=== PATIENT | male | born 1970 | race Caucasian/White ===

== ENCOUNTER → 2016-12-28 | Outpatient (CLI) | payer OTHER ==
--- NOTE | 2016-12-28 18:44 | CT ---
EXAMINATION TYPE: CT abdomen w con DATE OF EXAM: 12/28/2016 COMPARISON: NONE HISTORY: Liver lesion found on US. CT DLP: 330.9 mGycm Automated exposure control for dose reduction was used. TECHNIQUE: Helical acquisition of images was performed from the lung bases through the top of iliac crest to include entire abdomen. CONTRAST: Performed with Oral Contrast and with IV Contrast, patient injected with 100 mL of Omnipaque 300. FINDINGS: Lung bases are clear. There is no pleural effusion. Gallbladder is contracted. Spleen and pancreas ap pear normal. There is probably a 1 cm cyst adjacent to the gallbladder within the anterior right lobe of the liver. Bile ducts are not dilated. There is no adrenal mass. Kidneys show satisfactory contrast opacification. There is no hydronephrosi s. Appendix appears normal. I see no intestinal wall thickening. There are no dilated loops. There is no retroperitoneal adenopathy. I see no bony destructive process. IMPRESSION: THERE IS PROBABLY A SMALL CYST IN THE LIVER ADJACENT TO THE GALLBLADDER. OTHERWISE NEGATIVE CT SCAN O F THE ABDOMEN. THE PREVIOUS ULTRASOUND EXAMS NOT AVAILABLE.
== END | disposition home or self-care (01) ==
LOC: RADCTMAIN 17:23
PROVIDERS: ATTEND Internal Medicine Gastroenterology
DX: K76.9 Liver disease, unspecified (principal)
CPT/HCPCS: 74160; Q9967

== ENCOUNTER → 2017-06-30 | Outpatient (CLI) | payer OTHER ==
[2017-06-30 08:46] LABS: Basophils # (A) 0.1 k/uL (0-0.2); Basophils % (A) 1 %; Eosinophils # (A) 0.4 k/uL (0-0.7); Eosinophils % (A) 4 %; HCT 50.8 % (39.0-53.0); HGB 16.5 gm/dL (13.0-17.5); Lymphocytes # (A) 1.8 k/uL (1.0-4.8); Lymphocytes % (A) 21 %; MCH 31.8 pg (25.0-35.0); MCHC 32.4 g/dL (31.0-37.0); Monocytes # (A) 0.4 k/uL (0-1.0); Monocytes % (A) 5 %; Neutrophils # (A) 5.8 k/uL (1.3-7.7); Neutrophils % (A) 67 %; Platelet Count 327 k/uL (150-450); RBC 5.18 m/uL (4.30-5.90); RDW 13.1 % (11.5-15.5); WBC 8.6 k/uL (3.8-10.6)
[2017-06-30 08:52] LABS: INR 1.1 (<1.2); Prothrombin Time 10.5 sec (9.0-12.0)
[2017-06-30 09:12] LABS: Albumin 4.4 g/dL (3.5-5.0); Bilirubin, Delta 0.4 mg/dL (0.0-0.2); Bilirubin,Unconjugated 0.1 mg/dL (0.0-1.1); Total Bilirubin 0.5 mg/dL (0.2-1.3); Total Protein 7.2 g/dL (6.3-8.2)
--- NOTE | 2017-06-30 09:34 | US ---
EXAMINATION TYPE: US liver DATE OF EXAM: 06/30/2017 COMPARISON: CT 02/28/2016 CLINICAL HISTORY: K76.9 Liver disease, unspecified. Cystic area visualized on CT EXAM MEASUREMENTS: Liver Length: 15.8 cm Gallbladder Wall: 0.3 cm CBD: 0.6 cm Right Kidney: 10.5 x 3.8 x 5.7 cm Pancreas: Tail obscured by overlying bowel gas. Duct visualized measuring 0.2 cm, within normal limi ts although slightly prominent. Liver: Cystic area visualized adjacent to the gallbladder measuring 1.1 x 0.7 x 0.8 cm Gallbladder: Contracted with circumferential gallbladder wall thickening. Evidence for sonographic Barraza's sign: No CBD: Measuring upper limits of normal Right Kidney: No hydronephrosis or masses seen IMPRESSION: 1. Sonographic hepatic cyst appears simple and measures 1.1 cm correlating with the CT finding. 2. Contracted gallbladder demonstrates wall thickening, likely due to contraction although the common bile duct also measures upper limits of normal as does the pancreatic duct. Therefore further evalua tion with MRCP could be considered.
[2017-07-01 15:20] LABS: Hepatits C Virus RNA DETECTED (Not detected); LOG HCV IU/mL 5.99 (<1.08)
== END | disposition home or self-care (01) ==
LOC: RADUSWWP 08:02
PROVIDERS: ATTEND Internal Medicine Gastroenterology
DX: K82.8 Other specified diseases of gallbladder (principal); K76.9 Liver disease, unspecified; B18.2 Chronic viral hepatitis C
CPT/HCPCS: 36415; 76705; 80076; 82105; 85025; 85610; 87522

== ENCOUNTER 2017-12-13 20:41 | Emergency (ER) | payer OTHER ==
[2017-12-13] MEDS ORDERED: KETOROLAC 30 MG/ML 1 ML VIAL IVP STA (20:54)
[2017-12-13] MEDS ORDERED: IPRATROPIUM-ALBUTEROL 3 ML NEB INHALATION STA (20:54)
[2017-12-13 21:18] LABS: Basophils # (A) 0.1 k/uL (0-0.2); Basophils % (A) 1 %; Eosinophils # (A) 0.2 k/uL (0-0.7); Eosinophils % (A) 2 %; HCT 50.1 % (39.0-53.0); HGB 16.6 gm/dL (13.0-17.5); Lymphocytes % (A) 22 %; MCH 32.5 pg (25.0-35.0); MCHC 33.2 g/dL (31.0-37.0); Mean Platelet Volume 8.5; Monocytes # (A) 0.4 k/uL (0-1.0); Monocytes % (A) 4 %; Neutrophils # (A) 6.2 k/uL (1.3-7.7); Neutrophils % (A) 69 %; Platelet Count 295 k/uL (150-450); RBC 5.11 m/uL (4.30-5.90); RDW 13.2 % (11.5-15.5)
[2017-12-13 21:26] LABS: ALT 64 U/L (21-72); AST 51 U/L (17-59); Albumin 4.1 g/dL (3.5-5.0); Alkaline Phosphatase 87 U/L (38-126); Amylase 50 U/L (30-110); Anion Gap 9 mmol/L; Blood Urea Nitrogen 12 mg/dL (9-20); Calcium 9.5 mg/dL (8.4-10.2); Carbon Dioxide 24 mmol/L (22-30); Chloride 107 mmol/L (98-107); Glucose 206 mg/dL (74-99); Lipase 161 U/L (23-300); Magnesium 1.8 mg/dL (1.6-2.3); Potassium 3.7 mmol/L (3.5-5.1); Sodium 140 mmol/L (137-145); Total Bilirubin 0.5 mg/dL (0.2-1.3); Total Protein 7.3 g/dL (6.3-8.2)
[2017-12-13 21:31] LABS: Creatine Kinase 104 U/L (55-170)
--- NOTE | 2017-12-13 21:32 | XR ---
EXAMINATION TYPE: XR chest 2V DATE OF EXAM: 12/13/2017 COMPARISON: NONE HISTORY: Chest pain TECHNIQUE: Frontal and lateral views of the chest are obtained. FINDINGS: Heart and mediastinum are normal. Lungs are clear. Diaphragm is normal. Bony thorax is int act. IMPRESSION: Normal chest. Normal heart.
[2017-12-13 21:34] LABS: D-Dimer 0.23 mg/L FEU (<0.60); Partial Thromboplastin Time 24.1 sec (22.0-30.0); Prothrombin Time 10.2 sec (9.0-12.0)
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
[2017-12-13 21:43] LABS: Creatine Kinase MB 0.6 ng/mL (0.0-2.4); Troponin I <0.012 ng/mL (0.000-0.034)
[2017-12-13 22:52] VITALS: BP 141/87; PULSE 71; RESP 16; TEMP 98.8
== END 2017-12-13 22:52 | disposition home or self-care (01) ==
LOC: EC 20:41
DX: J98.01 Acute bronchospasm (principal); M94.0 Chondrocostal junction syndrome [Tietze]; F17.200 Nicotine dependence, unspecified, uncomplicated; Z86.14 Personal history of Methicillin resistant Staphylococcus aureus infection; Z88.8 Allergy status to other drugs, medicaments and biological substances
CPT/HCPCS: 36415; 94640; 93005; 85379; 83880; 80053; 82150; 82550; 82553; 83690; 83735; 84484; 85025; 85610; 85730; 71046; 99285; 96374; J1885

== ENCOUNTER → 2018-03-09 | Outpatient (CLI) | payer OTHER ==
--- NOTE | 2018-03-09 08:35 | US ---
EXAMINATION TYPE: US liver DATE OF EXAM: 03/09/2018 COMPARISON: US 2017, CT 2017 CLINICAL HISTORY: K76.9 lesion of Liver. Follow up liver lesion EXAM MEASUREMENTS: Liver Length: 16.7 cm Gallbladder Wall: 0.2 cm CBD: 0.7 cm Right Kidney: 10.6 x 4.3 x 4.8 cm Pancreas: visualized portions wnl, duct seen measuring 0.3cm, tail obscured by overlying midline bow el gas Liver: 1.1 x 0.7 x 1.0cm cyst adjacent to gallbladder Gallbladder: wnl Evidence for sonographic Barraza's sign: no CBD: dilated Right Kidney: wnl IMPRESSION: 1. Cyst adjacent to the gallbladder bed, stable from comparison.
[2018-03-09 09:14] LABS: Basophils # (A) 0.1 k/uL (0-0.2); Basophils % (A) 1 %; Eosinophils # (A) 0.4 k/uL (0-0.7); Eosinophils % (A) 4 %; HCT 54.9 % (39.0-53.0); HGB 17.5 gm/dL (13.0-17.5); Lymphocytes # (A) 1.9 k/uL (1.0-4.8); Lymphocytes % (A) 16 %; MCH 31.7 pg (25.0-35.0); MCV 99.2 fL (80.0-100.0); Mean Platelet Volume 7.8; Monocytes # (A) 0.7 k/uL (0-1.0); Monocytes % (A) 6 %; Neutrophils # (A) 8.8 k/uL (1.3-7.7); Neutrophils % (A) 73 %; Platelet Count 287 k/uL (150-450); RBC 5.53 m/uL (4.30-5.90); RDW 14.5 % (11.5-15.5); WBC 12.1 k/uL (3.8-10.6)
[2018-03-09 09:33] LABS: Albumin 4.6 g/dL (3.5-5.0); Bilirubin, Delta 0.1 mg/dL (0.0-0.2); Bilirubin,Unconjugated 0.5 mg/dL (0.0-1.1); Total Bilirubin 0.6 mg/dL (0.2-1.3); Total Protein 7.9 g/dL (6.3-8.2)
== END ==
LOC: RADUSWWP 07:56
PROVIDERS: ATTEND Internal Medicine Gastroenterology
DX: K82.8 Other specified diseases of gallbladder (principal); B18.2 Chronic viral hepatitis C
CPT/HCPCS: 36415; 76705; 80076; 82105; 85025

== ENCOUNTER 2018-03-15 11:07 | Emergency (ER) | payer OTHER ==
[2018-03-15 11:11] VITALS: BP 132/87; PULSE 74; RESP 18; TEMP 98.2
--- NOTE | 2018-03-15 11:21 | ED ---
General Adult HPI - General Chief complaint: Extremity Injury, Upper Stated complaint: hand injury Time Seen by Provider: 03/15/18 11:14 Source: patient, RN notes reviewed Mode of arrival: ambulatory Limitations: no limitations - History of Present Illness Initial comments: Patient is a pleasant 47-year-old male presenting to the emergency Department with complaints of right hand discomfort. Onset of symptoms was around 5 weeks ago. Patient is unclear whether or not he may have injured or struck something. Patient does not recall a specific event. Discomfort was somewhat mild at first however has progressively worsened over the past 5 weeks. Patient has noticed some swelling. No redness or warmth. Discomfort does increase with movement. Patient states he may have previously injured this area in the past however is unclear. Patient is unclear if he could've previously broken this area years ago. Area of involvement is the right MCP of the index finger. - Related Data Previous Rx's Medication Instructions Recorded Ibuprofen [Motrin] 600 mg PO Q6HR PRN #20 tab 03/15/18 Allergies Allergy/AdvReac Type Severity Reaction Status Date / Time trifluoperazine Allergy Unknown Verified 03/15/18 11:38 [From Ming] Review of Systems ROS Statement: Those systems with pertinent positive or pertinent negative responses have been documented in the HPI. ROS Other: All systems not noted in ROS Statement are negative. Constitutional: Denies: fever Eyes: Denies: eye pain ENT: Denies: ear pain Respiratory: Denies: cough Cardiovascular: Denies: chest pain Endocrine: Denies: fatigue Gastrointestinal: Denies: abdominal pain Genitourinary: Denies: dysuria Musculoskeletal: Reports: as per HPI, arthralgia. Denies: back pain Skin: Denies: rash, lesions Neurological: Denies: weakness Past Medical History Additional Past Medical History / Comment(s): previous iv drug user, hep C History of Any Multi-Drug Resistant Organisms: MRSA Date of last positivie culture/infection: 2002 MDRO Source:: left arm Additional Past Surgical History / Comment(s): cyst removal from face Past Psychological History: Bipolar, Schizoaffective Disorder Smoking Status: Current every day smoker Past Alcohol Use History: None Reported Past Drug Use History: Marijuana General Exam Limitations: no limitations General appearance: alert, in no apparent distress Head exam: Present: atraumatic Eye exam: Present: normal appearance Respiratory exam: Present: normal lung sounds bilaterally Cardiovascular Exam: Present: regular rate, normal rhythm GI/Abdominal exam: Present: soft. Absent: tenderness Extremities exam: Present: tenderness (Right index finger MCP with minimal swelling. There is mild to moderate tenderness. Pain with active and passive range of motion. Distally the finger is neurovascularly intact. Cap refill less than 2 seconds.), normal capillary refill Neurological exam: Present: alert Psychiatric exam: Present: normal affect, normal mood Skin exam: Present: normal color. Absent: rash Course Vital Signs 03/15/18 11:08 Temperature 98.2 F Pulse Rate 74 Respiratory 18 Rate Blood Pressure 132/87 O2 Sat by Pulse 99 Oximetry Procedures - Orthopedic Splinting/Casting Injury #1 Side: right Upper Extremity Injury Location: short arm (Dorsal), hand Upper Extremity Immobilizer: posterior splint Medical Decision Making - Radiology Data Radiology results: image reviewed (X-ray shows no acute abnormality) Disposition Clinical Impression: Arthralgia of hand, right Disposition: HOME SELF-CARE Condition: Stable Instructions (If sedation given, give patient instructions): Arthralgia (ED) Additional Instructions: Please follow-up with orthopedics and primary care physician in the next couple days for recheck. Return for redness, fever, increased swelling, increased pain , hand use problems, worsening or changing symptoms or other concerns. Prescriptions: Ibuprofen [Motrin] 600 mg PO Q6HR PRN #20 tab PRN Reason: Pain Is patient prescribed a controlled substance at d/c from ED?: No Referrals: Ramiro Ga MD [Primary Care Provider] - 1-2 days Ha Barraza MD [STAFF PHYSICIAN] - 1-2 days Time of Disposition: 12:13
--- NOTE | 2018-03-15 12:01 | XR ---
EXAMINATION TYPE: XR hand complete RT DATE OF EXAM: 03/15/2018 CLINICAL HISTORY: Injury 5 weeks ago to first finger. TECHNIQUE: Frontal, lateral and oblique images of the right hand are obtained. COMPARISON: None. FINDINGS: There is no acute fracture/dislocation evident in the right hand. Mild narrowing and spurr ing base of first metacarpal is present. Mild joint space narrowing is seen fourth and fifth PIP and second and fifth DIP joints. The overlying soft tissue appears unremarkable. IMPRESSION: There is no acute fracture or dislocation in the right hand.
== END 2018-03-15 12:26 | disposition home or self-care (01) ==
LOC: EC 11:07
DX: M25.541 Pain in joints of right hand (principal); F17.200 Nicotine dependence, unspecified, uncomplicated; Z86.19 Personal history of other infectious and parasitic diseases; Z86.14 Personal history of Methicillin resistant Staphylococcus aureus infection; Z88.8 Allergy status to other drugs, medicaments and biological substances
CPT/HCPCS: 29125; 99283

== ENCOUNTER 2018-06-25 20:22 | Emergency (ER) | payer OTHER ==
[2018-06-25 20:37] VITALS: TEMP 98.3
[2018-06-25] MEDS ORDERED: SODIUM CHLORIDE 0.9% 1,000 ML IV STA (20:54)
[2018-06-25] MEDS ORDERED: LORazepam 2 MG/ML INJ IV PRN ×3 (20:54)
[2018-06-25] MEDS ORDERED: THIAMINE 100 MG/ML 2 ML VIAL IM STA (20:54)
--- NOTE | 2018-06-25 21:01 | ED ---
Alcohol HPI - General Chief Complaint: Alcohol Stated Complaint: Etoh withdrawls Time Seen by Provider: 06/25/18 20:39 Source: patient Mode of arrival: ambulatory Limitations: no limitations - History of Present Illness Initial Comments: Patient is a 48-year-old male presenting for alcohol withdrawal. Patient states that he is abusing alcohol for probably about 20-30 years and drinks 2/5 per day. He states that his last drink was yesterday around 6 PM and he has had shaking and chills as well as nausea and has had hallucinations of bugs: On him. He also admits to some intermittent chest pain which she gets whenever he goes through withdrawals. - Related Data Allergies Allergy/AdvReac Type Severity Reaction Status Date / Time trifluoperazine Allergy Unknown Verified 06/25/18 21:43 [From Ming] Review of Systems ROS Statement: Those systems with pertinent positive or pertinent negative responses have been documented in the HPI. Constitutional: Positive for chills, fatigue and negative fever. HENT: Negative for congestion. Respiratory: Negative for chest tightness, shortness of breath and wheezing. Negative for cough Cardiovascular: Positive for chest pain and negative for palpitations. Gastrointestinal: Negative for abdominal pain. Negative for abdominal distention, diarrhea, positive for nausea and vomiting. Genitourinary: Negative for dysuria. Musculoskeletal: Negative for back pain, neck pain and neck stiffness. Skin: Negative for color change. Neurological: Negative for dizziness, speech difficulty, weakness and light- headedness. Psychiatric/Behavioral: Negative for agitation and confusion. Negative for anxiety. positive for hallucinations ROS Other: All systems not noted in ROS Statement are negative. Past Medical History Additional Past Medical History / Comment(s): previous iv drug user, hep C History of Any Multi-Drug Resistant Organisms: MRSA Date of last positivie culture/infection: 2002 MDRO Source:: left arm Additional Past Surgical History / Comment(s): cyst removal from face Past Psychological History: Bipolar, Schizoaffective Disorder Smoking Status: Current every day smoker Past Alcohol Use History: Abuse Past Drug Use History: Marijuana General Exam - General Exam Comments Initial Comments: Constitutional: Pt appears well-developed and well-nourished. No distress. Head: Normocephalic and atraumatic. Eyes: EOM are normal. Neck: Normal range of motion. Neck supple. Cardiovascular: Tachycardia present, regular rhythm, S1 normal, S2 normal and normal heart sounds. Exam reveals no gallop and no friction rub. No murmur heard. Pulmonary/Chest: Effort normal and breath sounds normal. No tachypnea and no bradypnea. No respiratory distress. No wheezes or rales noted. Abdominal: Soft. Bowel sounds are normal. Pt exhibits no shifting dullness, no distension, no pulsatile liver, no fluid wave, no abdominal bruit and no asci leobardo. There is no rigidity, no rebound, no guarding, no tenderness at McBurney's point and negative Barraza's sign. There is no tenderness. Musculoskeletal: Normal range of motion. Neurological: Pt is alert and oriented to person, place, and time. No cranial nerve deficit. Skin: Skin is warm and dry. No rash noted. Pt is not diaphoretic. No erythema. No pallor. Psychiatric: Pt has a normal mood and affect. Pt behavior is normal. Thought content normal. Limitations: no limitations Course Vital Signs 06/25/18 06/25/18 20:33 22:18 Temperature 98.3 F Pulse Rate 115 H 102 H Respiratory 20 18 Rate Blood Pressure 155/83 119/87 O2 Sat by Pulse 98 98 Oximetry Medical Decision Making - Medical Decision Making Laboratory studies show that there is no significant joint derangements but because the patient had a C was score 16, it was thought that it would be unsafe to send the patient home. Because of this, patient will be admitted to hospital for alcohol withdrawals.Explained all labs and diagnostic test results and that we will admit patient to hospital. Pt is agreeable to plan and case has been discussed with Dr. Ga and they agree to accept the pt. - Lab Data Result diagrams: 06/25/18 21:19 06/25/18 21:19 Lab Results 06/25/18 06/25/18 06/25/18 Range/Units 21:19 21:19 21:19 WBC 11.2 H (3.8-10.6) k/uL RBC 4.95 (4.30-5.90) m/uL Hgb 16.1 (13.0-17.5) gm/dL Hct 47.1 (39.0-53.0) % MCV 95.1 (80.0-100.0) fL MCH 32.6 (25.0-35.0) pg MCHC 34.3 (31.0-37.0) g/dL RDW 13.2 (11.5-15.5) % Plt Count 411 (150-450) k/uL Neutrophils % 81 % Lymphocytes % 13 % Monocytes % 4 % Eosinophils % 1 % Basophils % 1 % Neutrophils # 9.0 H (1.3-7.7) k/uL Lymphocytes # 1.5 (1.0-4.8) k/uL Monocytes # 0.5 (0-1.0) k/uL Eosinophils # 0.1 (0-0.7) k/uL Basophils # 0.1 (0-0.2) k/uL PT 10.3 (9.0-12.0) sec INR 1.0 (<1.2) APTT 25.8 (22.0-30.0) sec Sodium 135 L (137-145) mmol/L Potassium 4.4 (3.5-5.1) mmol/L Chloride 97 L (98-107) mmol/L Carbon Dioxide 23 (22-30) mmol/L Anion Gap 15 mmol/L BUN 11 (9-20) mg/dL Creatinine 0.73 (0.66-1.25) mg/dL Est GFR (CKD-EPI)AfAm >90 (>60 ml/min/1.73 sqM) Est GFR (CKD-EPI)NonAf >90 (>60 ml/min/1.73 sqM) Glucose 94 (74-99) mg/dL Calcium 10.0 (8.4-10.2) mg/dL Magnesium 1.5 L (1.6-2.3) mg/dL Troponin I (0.000-0.034) ng/mL Serum Alcohol <10 mg/dL 06/25/18 Range/Units 21:19 WBC (3.8-10.6) k/uL RBC (4.30-5.90) m/uL Hgb (13.0-17.5) gm/dL Hct (39.0-53.0) % MCV (80.0-100.0) fL MCH (25.0-35.0) pg MCHC (31.0-37.0) g/dL RDW (11.5-15.5) % Plt Count (150-450) k/uL Neutrophils % % Lymphocytes % % Monocytes % % Eosinophils % % Basophils % % Neutrophils # (1.3-7.7) k/uL Lymphocytes # (1.0-4.8) k/uL Monocytes # (0-1.0) k/uL Eosinophils # (0-0.7) k/uL Basophils # (0-0.2) k/uL PT (9.0-12.0) sec INR (<1.2) APTT (22.0-30.0) sec Sodium (137-145) mmol/L Potassium (3.5-5.1) mmol/L Chloride (98-107) mmol/L Carbon Dioxide (22-30) mmol/L Anion Gap mmol/L BUN (9-20) mg/dL Creatinine (0.66-1.25) mg/dL Est GFR (CKD-EPI)AfAm (>60 ml/min/1.73 sqM) Est GFR (CKD-EPI)NonAf (>60 ml/min/1.73 sqM) Glucose (74-99) mg/dL Calcium (8.4-10.2) mg/dL Magnesium (1.6-2.3) mg/dL Troponin I <0.012 (0.000-0.034) ng/mL Serum Alcohol mg/dL - EKG Data EKG Comments: EKG shows sinus tachycardia with a rate of 100 bpm and PVCs. NM interval 140, QRS 88, QTC 474. There are no significant ST depressions or elevations. Disposition Clinical Impression: Alcohol withdrawal Disposition: ADMITTED IP TO THIS [facility] Condition: Fair Referrals: Ramiro Ga MD [Primary Care Provider] - 1-2 days Decision to Admit Reason: Admit from EC Decision Date: 06/25/18 Decision Time: 22:19
[2018-06-25] MEDS: THIAMINE 100 MG TAB PO SCH (21:18)
[2018-06-25 21:37] LABS: Basophils # (A) 0.1 k/uL (0-0.2); Basophils % (A) 1 %; Eosinophils # (A) 0.1 k/uL (0-0.7); Eosinophils % (A) 1 %; HCT 47.1 % (39.0-53.0); HGB 16.1 gm/dL (13.0-17.5); Lymphocytes # (A) 1.5 k/uL (1.0-4.8); Lymphocytes % (A) 13 %; MCH 32.6 pg (25.0-35.0); MCHC 34.3 g/dL (31.0-37.0); MCV 95.1 fL (80.0-100.0); Mean Platelet Volume 7.4; Monocytes # (A) 0.5 k/uL (0-1.0); Monocytes % (A) 4 %; Neutrophils % (A) 81 %; Platelet Count 411 k/uL (150-450); RBC 4.95 m/uL (4.30-5.90); RDW 13.2 % (11.5-15.5); WBC 11.2 k/uL (3.8-10.6)
[2018-06-25 21:49] LABS: Alcohol <10 mg/dL; Anion Gap 15 mmol/L; Blood Urea Nitrogen 11 mg/dL (9-20); Carbon Dioxide 23 mmol/L (22-30); Chloride 97 mmol/L (98-107); Glucose 94 mg/dL (74-99); Magnesium 1.5 mg/dL (1.6-2.3); Potassium 4.4 mmol/L (3.5-5.1); Sodium 135 mmol/L (137-145)
[2018-06-25 21:53] LABS: Partial Thromboplastin Time 25.8 sec (22.0-30.0); Prothrombin Time 10.3 sec (9.0-12.0)
[2018-06-25 22:19] VITALS: RESP 18
[2018-06-25] MEDS ORDERED: NALOXONE 0.4 MG/ML 1 ML VIAL IV PRN (22:48)
[2018-06-25] MEDS ORDERED: SODIUM CHLORIDE 0.9% 1,000 ML IV SCH (23:00)
--- NOTE | 2018-06-25 23:00 | ED ---
Medical Decision Making - Medical Decision Making Patient was to be admitted but then declined and stated that he would need to leave because he asked That He Needs to Take Care Of. Is Advised to Him That Leaving His Medical Advice Could Result in or Disability and That There Was Severe Concern about Him Having Alcohol-withdrawal induced seizures. Patient expressed understanding and stated that he still wanted to leave. - Lab Data Result diagrams: 06/25/18 21:19 06/25/18 21: Lab Results 06/25/18 06/25/18 06/25/18 Range/Units 21:19 21: 21: WBC 11.2 H (3.8-10.6) k/uL RBC 4.95 (4.30-5.90) m/uL Hgb 16.1 (13.0-17.5) gm/dL Hct 47.1 (39.0-53.0) % MCV 95.1 (80.0-100.0) fL MCH 32.6 (25.0-35.0) pg MCHC 34.3 (31.0-37.0) g/dL RDW 13.2 (11.5-15.5) % Plt Count 411 (150-450) k/uL Neutrophils % 81 % Lymphocytes % 13 % Monocytes % 4 % Eosinophils % 1 % Basophils % 1 % Neutrophils # 9.0 H (1.3-7.7) k/uL Lymphocytes # 1.5 (1.0-4.8) k/uL Monocytes # 0.5 (0-1.0) k/uL Eosinophils # 0.1 (0-0.7) k/uL Basophils # 0.1 (0-0.2) k/uL PT 10.3 (9.0-12.0) sec INR 1.0 (<1.2) APTT 25.8 (22.0-30.0) sec Sodium 135 L (137-145) mmol/L Potassium 4.4 (3.5-5.1) mmol/L Chloride 97 L (98-107) mmol/L Carbon Dioxide 23 (22-30) mmol/L Anion Gap 15 mmol/L BUN 11 (9-20) mg/dL Creatinine 0.73 (0.66-1.25) mg/dL Est GFR (CKD-EPI)AfAm >90 (>60 ml/min/1.73 sqM) Est GFR (CKD-EPI)NonAf >90 (>60 ml/min/1.73 sqM) Glucose 94 (74-99) mg/dL Calcium 10.0 (8.4-10.2) mg/dL Magnesium 1.5 L (1.6-2.3) mg/dL Troponin I (0.000-0.034) ng/mL Serum Alcohol <10 mg/dL 06/25/18 Range/Units 21:19 WBC (3.8-10.6) k/uL RBC (4.30-5.90) m/uL Hgb (13.0-17.5) gm/dL Hct (39.0-53.0) % MCV (80.0-100.0) fL MCH (25.0-35.0) pg MCHC (31.0-37.0) g/dL RDW (11.5-15.5) % Plt Count (150-450) k/uL Neutrophils % % Lymphocytes % % Monocytes % % Eosinophils % % Basophils % % Neutrophils # (1.3-7.7) k/uL Lymphocytes # (1.0-4.8) k/uL Monocytes # (0-1.0) k/uL Eosinophils # (0-0.7) k/uL Basophils # (0-0.2) k/uL PT (9.0-12.0) sec INR (<1.2) APTT (22.0-30.0) sec Sodium (137-145) mmol/L Potassium (3.5-5.1) mmol/L Chloride (98-107) mmol/L Carbon Dioxide (22-30) mmol/L Anion Gap mmol/L BUN (9-20) mg/dL Creatinine (0.66-1.25) mg/dL Est GFR (CKD-EPI)AfAm (>60 ml/min/1.73 sqM) Est GFR (CKD-EPI)NonAf (>60 ml/min/1.73 sqM) Glucose (74-99) mg/dL Calcium (8.4-10.2) mg/dL Magnesium (1.6-2.3) mg/dL Troponin I <0.012 (0.000-0.034) ng/mL Serum Alcohol mg/dL Disposition Clinical Impression: Alcohol withdrawal Disposition: Left Against Medical Advice Condition: Poor Instructions (If sedation given, give patient instructions): Alcohol Withdrawal (ED) Referrals: Ramiro Ga MD [Primary Care Provider] - 1-2 days Time of Disposition: 22:59
[2018-06-25 23:15] VITALS: BP 122/82; PULSE 90
== END 2018-06-25 23:16 | disposition left against medical advice (07) ==
LOC: EC 20:22
DX: F10.239 Alcohol dependence with withdrawal, unspecified (principal); F17.200 Nicotine dependence, unspecified, uncomplicated; Z88.8 Allergy status to other drugs, medicaments and biological substances
CPT/HCPCS: 36415; 93005; 80048; 83735; 84484; 85025; 85610; 85730; 99285; 96374; 96361; 96372; G0480; J2060; J3411; 80320

== ENCOUNTER → 2018-08-10 | Outpatient (CLI) | payer OTHER ==
[2018-08-10 15:12] LABS: Basophils # (A) 0.1 k/uL (0-0.2); Basophils % (A) 1 %; Eosinophils # (A) 0.2 k/uL (0-0.7); Eosinophils % (A) 2 %; HCT 50.9 % (39.0-53.0); HGB 16.7 gm/dL (13.0-17.5); Lymphocytes % (A) 22 %; MCH 31.3 pg (25.0-35.0); MCHC 32.8 g/dL (31.0-37.0); MCV 95.4 fL (80.0-100.0); Mean Platelet Volume 8.5; Monocytes # (A) 0.5 k/uL (0-1.0); Monocytes % (A) 5 %; Neutrophils # (A) 6.3 k/uL (1.3-7.7); Neutrophils % (A) 68 %; Platelet Count 300 k/uL (150-450); RBC 5.34 m/uL (4.30-5.90); RDW 15.3 % (11.5-15.5); WBC 9.3 k/uL (3.8-10.6)
[2018-08-10 19:43] LABS: Albumin 4.7 g/dL (3.80-4.90); Albumin/Globulin Ratio 1.52 (1.60-3.17); Bilirubin, Conjugated 0.2 mg/dL (0.20-0.40); Bilirubin,Unconjugated 0.5 mg/dL; Globulin 3.1 g/dL (1.6-3.3); Total Bilirubin 0.7 mg/dL (0.3-1.2); Total Protein 7.8 g/dL (6.2-8.2)
[2018-08-11 14:54] LABS: Hepatits C Virus RNA DETECTED (Not detected); LOG HCV IU/mL 5.78 (<1.08)
== END | disposition home or self-care (01) ==
LOC: LABWHC1 14:24
PROVIDERS: ATTEND Internal Medicine Gastroenterology
DX: B18.2 Chronic viral hepatitis C (principal)
CPT/HCPCS: 36415; 80076; 82105; 85025; 87522

== ENCOUNTER → 2018-10-05 | Outpatient (CLI) | payer OTHER ==
[2018-10-05 10:13] LABS: Basophils # (A) 0.1 k/uL (0-0.2); Basophils % (A) 1 %; Eosinophils # (A) 0.3 k/uL (0-0.7); Eosinophils % (A) 3 %; HCT 53.6 % (39.0-53.0); HGB 17.9 gm/dL (13.0-17.5); Lymphocytes # (A) 2.7 k/uL (1.0-4.8); Lymphocytes % (A) 28 %; MCH 33.2 pg (25.0-35.0); MCHC 33.3 g/dL (31.0-37.0); MCV 99.8 fL (80.0-100.0); Macrocytosis Slight; Mean Platelet Volume 8.2; Monocytes # (A) 0.7 k/uL (0-1.0); Monocytes % (A) 7 %; Neutrophils # (A) 5.5 k/uL (1.3-7.7); Neutrophils % (A) 58 %; Platelet Count 329 k/uL (150-450); RBC 5.37 m/uL (4.30-5.90); RDW 15.1 % (11.5-15.5); WBC 9.4 k/uL (3.8-10.6)
[2018-10-05 16:18] LABS: Albumin 4.5 g/dL (3.80-4.90); Albumin/Globulin Ratio 1.88 (1.60-3.17); Bilirubin, Conjugated 0.2 mg/dL (0.20-0.40); Bilirubin,Unconjugated 0.4 mg/dL; Globulin 2.4 g/dL (1.6-3.3); Total Bilirubin 0.6 mg/dL (0.2-1.2); Total Protein 6.9 g/dL (6.2-8.2)
[2018-10-06 13:25] LABS: LOG HCV IU/mL <1.08 (<1.08)
== END | disposition home or self-care (01) ==
LOC: LABWHC1 09:23
PROVIDERS: ATTEND Physician Assistant
DX: B18.2 Chronic viral hepatitis C (principal)
CPT/HCPCS: 36415; 80076; 85025; 87522

== ENCOUNTER 2018-10-18 14:26 | Emergency (ER) | payer OTHER ==
[2018-10-18 14:39] VITALS: BP 121/89; PULSE 61; RESP 16; TEMP 98.7
--- NOTE | 2018-10-18 15:24 | ED ---
Psych HPI - General Chief Complaint: Psychiatric Symptoms Stated Complaint: Mental health Time Seen by Provider: 10/18/18 14:41 Source: patient, RN notes reviewed Mode of arrival: ambulatory Limitations: no limitations - History of Present Illness Initial Comments: This a 48-year-old male presents emergency department for psychiatric evaluation. Patient states he has ongoing psychiatric problems in which she sees [facility] for. Patient is not suicidal or homicidal. Denies any thoughts of harming self. He does have a history of drug abuse. Patient states that it's history schizophrenia. Patient states that he just wants to talk to somebody here. Patient states that he does not want to comply with any rules including been disrobed, collecting belongings. Patient states that he has his own rules and his own safety feelings and states that he will do what he wants at this time. - Related Data Allergies Allergy/AdvReac Type Severity Reaction Status Date / Time trifluoperazine Allergy Unknown Verified 10/18/18 14:39 [From Ming] Review of Systems ROS Statement: Those systems with pertinent positive or pertinent negative responses have been documented in the HPI. ROS Other: All systems not noted in ROS Statement are negative. Past Medical History Additional Past Medical History / Comment(s): previous iv drug user, hep C, herpes (R) eye, ETOH abuse History of Any Multi-Drug Resistant Organisms: MRSA Date of last positivie culture/infection: 2002 MDRO Source:: left arm Additional Past Surgical History / Comment(s): cyst removal from face Past Psychological History: Bipolar, Schizoaffective Disorder Smoking Status: Current every day smoker Past Alcohol Use History: Abuse Past Drug Use History: Marijuana General Exam - General Exam Comments Initial Comments: Unable to complete full exam secondary to patient not willing Limitations: no limitations General appearance: alert, in no apparent distress Head exam: Present: atraumatic, normocephalic, normal inspection, other Eye exam: Present: normal appearance. Absent: scleral icterus, conjunctival injection, periorbital swelling ENT exam: Present: mucous membranes moist Cardiovascular Exam: Absent: clicks Neurological exam: Present: alert Psychiatric exam: Present: anxious Skin exam: Present: warm, intact, normal color. Absent: rash Course Vital Signs 10/18/18 14:33 Temperature 98.7 F Pulse Rate 61 Respiratory 16 Rate Blood Pressure 121/89 O2 Sat by Pulse 98 Oximetry Medical Decision Making - Medical Decision Making 48-year-old male presented for psychiatric problems. Patient wanted to discuss is found with psychiatric nurse that he did not want to comply with sick individuals including change into a gown, click and belongings. Patient is not suicidal or homicidal. Patient states she's never felt that way. Patient states that he rather just wait for his appointment then following protocol. Disposition Clinical Impression: Acute anxiety, Depression Disposition: Left Against Medical Advice Condition: Stable Referrals: Ramiro Ga MD [Primary Care Provider] - 1-2 days Time of Disposition: 15:24
== END 2018-10-18 15:23 | disposition left against medical advice (07) ==
LOC: EC 14:26
DX: F31.30 Bipolar disorder, current episode depressed, mild or moderate severity, unspecified (principal); F41.9 Anxiety disorder, unspecified; F19.11 Other psychoactive substance abuse, in remission; F17.200 Nicotine dependence, unspecified, uncomplicated; Z88.8 Allergy status to other drugs, medicaments and biological substances; Z86.14 Personal history of Methicillin resistant Staphylococcus aureus infection
CPT/HCPCS: 82075; 99283

== ENCOUNTER 2018-11-10 01:05 | Emergency (ER) | payer OTHER ==
[2018-11-10 01:13] VITALS: BP 126/83; PULSE 99; RESP 18; TEMP 97.6
--- NOTE | 2018-11-10 01:40 | ED ---
Skin/Abscess/FB HPI - General Chief complaint: Skin/Abscess/Foreign Body Stated complaint: skin irritation Time Seen by Provider: 11/10/18 01:15 Source: patient Mode of arrival: ambulatory Limitations: no limitations - History of Present Illness Initial comments: 48-year-old male patient presents to the emergency department today for evaluation of sensation of bugs calling on his skin. Patient states a couple months ago he found bed bugs in his home which has since been exterminated. Patient states that he has history of psychiatric illness and high anxiety and he continues to feel blood swelling on his skin. Patient states when he feels a sensation he will look and nothing will be there. Patient is concerning may have developed scabies or head lice. He would like to be checked for this. He denies any changes medications recently. Denies any recent alcohol use. States that the symptoms are so bad he is unable to sleep. Patient denies any recent rash, fever, chills, shortness breath, chest pain, abdominal pain, nausea, vomiting, diarrhea, constipation, back pain, numbness, tingling, dizziness, weakness, hematuria, dysuria, urinary urgency, urinary frequency, headache, visual changes, or any other complaints. - Related Data Allergies Allergy/AdvReac Type Severity Reaction Status Date / Time trifluoperazine Allergy Unknown Verified 11/10/18 01:13 [From Mign] Review of Systems ROS Statement: Those systems with pertinent positive or pertinent negative responses have been documented in the HPI. ROS Other: All systems not noted in ROS Statement are negative. Past Medical History Additional Past Medical History / Comment(s): previous iv drug user, hep C, herpes (R) eye, ETOH abuse History of Any Multi-Drug Resistant Organisms: MRSA Date of last positivie culture/infection: 2002 MDRO Source:: left arm Additional Past Surgical History / Comment(s): cyst removal from face Past Psychological History: Bipolar, Schizoaffective Disorder Smoking Status: Current every day smoker Past Alcohol Use History: Abuse Past Drug Use History: Marijuana General Exam Limitations: no limitations General appearance: alert, in no apparent distress, other (Physical well- developed, well-nourished adult male patient in no acute distress. Vital signs upon presentation are temperature 97.6F, pulse 99, respirations 18, blood pressure 126/83, pulse ox 98% on room air.) Eye exam: Present: normal appearance, PERRL, EOMI. Absent: scleral icterus, conjunctival injection, periorbital swelling ENT exam: Present: normal exam, normal oropharynx, mucous membranes moist Respiratory exam: Present: normal lung sounds bilaterally. Absent: respiratory distress, wheezes, rales, rhonchi, stridor Cardiovascular Exam: Present: regular rate, normal rhythm, normal heart sounds. Absent: systolic murmur, diastolic murmur, rubs, gallop, clicks GI/Abdominal exam: Present: soft, normal bowel sounds. Absent: distended, tenderness, guarding, rebound, rigid Neurological exam: Present: alert, oriented X3, CN II-XII intact Psychiatric exam: Present: normal affect, normal mood Skin exam: Present: warm, dry, intact, normal color. Absent: rash Course Vital Signs 11/10/18 01:09 Temperature 97.6 F Pulse Rate 99 Respiratory 18 Rate Blood Pressure 126/83 O2 Sat by Pulse 98 Oximetry Medical Decision Making - Medical Decision Making 48-year-old male patient presented to the emergency department today for evaluation of the sensation of bugs swelling on his skin. Patient has history of OCD and anxiety. Physical examination was unremarkable.. No concerning symptoms for scabies. We did do an ablation check which was also negative. I did discuss these findings with the patient. He will be discharged home with his primary care physician for recheck in 1-2 days. Return parameters were discussed in detail. He verbalizes understanding and agrees with this plan. Disposition Clinical Impression: Psychogenic formication Disposition: HOME SELF-CARE Condition: Good Instructions (If sedation given, give patient instructions): Paresthesia (ED) Is patient prescribed a controlled substance at d/c from ED?: No Referrals: Ramiro Ga MD [Primary Care Provider] - 1-2 days Time of Disposition: 01:40
== END 2018-11-10 01:51 | disposition home or self-care (01) ==
LOC: EC 01:05
DX: F45.8 Other somatoform disorders (principal); F17.200 Nicotine dependence, unspecified, uncomplicated; Z88.8 Allergy status to other drugs, medicaments and biological substances; Z86.14 Personal history of Methicillin resistant Staphylococcus aureus infection; Z86.59 Personal history of other mental and behavioral disorders
CPT/HCPCS: 99282

== ENCOUNTER 2018-12-01 11:06 | Emergency (ER) | payer OTHER ==
[2018-12-01] MEDS ORDERED: methylPREDNISolone SOD SUCCI 125 MG/2 ML VIAL IV STA (11:59)
[2018-12-01] MEDS ORDERED: IPRATROPIUM-ALBUTEROL 3 ML NEB INHALATION STA (11:59)
--- NOTE | 2018-12-01 12:03 | ED ---
General Adult HPI - General Chief complaint: Upper Respiratory Infection Stated complaint: Sick Time Seen by Provider: 12/01/18 11:27 Source: patient, RN notes reviewed Mode of arrival: ambulatory Limitations: no limitations - History of Present Illness Initial comments: 48-year-old male with a past medical history of hepatitis C presents to the emergency department for a chief complaint of cough. Patient has had a cough for 2 weeks. No fevers or chills. Patient does admit to smoking. States he has had a productive cough and a lot of nasal drainage as well. States he has been taking [id number] medications without much improvement. Denies any significant shortness of breath. Denies chest pain. Patient has no other complaints at this time including shortness of breath, chest pain, abdominal pain, nausea or vomiting, headache, or visual changes. - Related Data Previous Rx's Medication Instructions Recorded Albuterol Inhaler [Ventolin Hfa 1 - 2 puff INHALATION Q6HR PRN #1 12/01/18 Inhaler] inhaler Azithromycin [Zithromax Z-pack] 250 mg PO DIRECTED #6 tab 12/01/18 Benzonatate [Tessalon Perles] 200 mg PO Q8H PRN #15 capsule 12/01/18 predniSONE 50 mg PO DAILY #5 tablet 12/01/18 Allergies Allergy/AdvReac Type Severity Reaction Status Date / Time trifluoperazine Allergy Unknown Verified 12/01/18 11:21 [From Ming] Review of Systems ROS Statement: Those systems with pertinent positive or pertinent negative responses have been documented in the HPI. ROS Other: All systems not noted in ROS Statement are negative. Past Medical History Past Medical History: No Reported History Additional Past Medical History / Comment(s): previous iv drug user, hep C, herpes (R) eye, ETOH abuse History of Any Multi-Drug Resistant Organisms: MRSA Date of last positivie culture/infection: 2002 MDRO Source:: left arm Additional Past Surgical History / Comment(s): cyst removal from face Past Psychological History: Bipolar, Schizoaffective Disorder Smoking Status: Current every day smoker Past Alcohol Use History: Abuse Past Drug Use History: Marijuana General Exam Limitations: no limitations General appearance: alert, in no apparent distress Head exam: Present: atraumatic, normocephalic, normal inspection Eye exam: Present: normal appearance ENT exam: Present: normal exam, mucous membranes moist Neck exam: Present: normal inspection, full ROM. Absent: tenderness, meningismus, lymphadenopathy Respiratory exam: Present: wheezes (Wheezing noted bilaterally), decreased breath sounds. Absent: respiratory distress, rales, rhonchi, stridor Cardiovascular Exam: Present: regular rate, normal rhythm, normal heart sounds. Absent: systolic murmur, diastolic murmur, rubs, gallop, clicks Neurological exam: Present: alert Psychiatric exam: Present: normal affect, normal mood Course Vital Signs 12/01/18 12/01/18 12/01/18 11:17 12:17 12:28 Temperature 98.5 F Pulse Rate 85 88 88 Respiratory 18 Rate Blood Pressure 104/70 O2 Sat by Pulse 95 Oximetry Procedures - Smoking Cessation Time Spent Discussing Smoking Cessation w/Patient (Minutes): 3 Patient Acknowledges Need for Cessation: Yes Medical Decision Making - Medical Decision Making Vitals are stable. Patient is 95% on room air. Lung sounds are diminished bilaterally with mild wheezing. Chest x-ray shows no acute process. Correlate for COPD. Patient likely has bronchitis. Patient was given breathing treatment here which did improve his symptoms. He was started on azithromycin and steroid. He was also prescribed a new inhaler. He will follow up with primary care in 1-2 days or return here if he has any worsening symptoms. I did do a walking O2 with patient and he was satting at 98% before discharge. Disposition Clinical Impression: Cough Disposition: HOME SELF-CARE Condition: Good Instructions (If sedation given, give patient instructions): Upper Respiratory Infection (ED) Additional Instructions: Please take prescriptions as directed. Start antibiotics today but do not start steroids until tomorrow. These were prescribed to [facility] [place] [facility]. Follow-up with primary care in 1-2 days. Return to the emergency department if you have any worsening symptoms. Prescriptions: predniSONE 50 mg PO DAILY #5 tablet Benzonatate [Tessalon Perles] 200 mg PO Q8H PRN #15 capsule PRN Reason: Cough Albuterol Inhaler [Ventolin Hfa Inhaler] 1 - 2 puff INHALATION Q6HR PRN #1 inhaler PRN Reason: Shortness Of Breath Azithromycin [Zithromax Z-pack] 250 mg PO DIRECTED #6 tab Is patient prescribed a controlled substance at d/c from ED?: No Referrals: Ramiro Ga MD [Primary Care Provider] - 1-2 days Time of Disposition: 13:23
--- NOTE | 2018-12-01 12:53 | XR ---
EXAMINATION TYPE: XR chest 2V DATE OF EXAM: 12/01/2018 COMPARISON: 05/22/2018 TECHNIQUE: PA and lateral views submitted. HISTORY: Cough FINDINGS: The lungs are clear and there is no pneumothorax, pleural effusion, or focal pneumonia. No overt fa ilure. Hyperinflation noted. Degenerative change of the spine. IMPRESSION: 1. No acute process. Correlate for COPD.
[2018-12-01 13:49] VITALS: BP 116/84; PULSE 77; RESP 20; TEMP 98.2
== END 2018-12-01 13:40 | disposition home or self-care (01) ==
LOC: EC 11:06
DX: R05 Cough (principal); R06.2 Wheezing; B19.20 Unspecified viral hepatitis C without hepatic coma; F17.200 Nicotine dependence, unspecified, uncomplicated; Z71.6 Tobacco abuse counseling; Z88.8 Allergy status to other drugs, medicaments and biological substances
CPT/HCPCS: 94640; 71046; 96374; 99283; J2930

== ENCOUNTER → 2019-01-20 | Outpatient (CLI) | payer OTHER ==
[2019-01-20 13:43] LABS: Basophils # (A) 0.1 k/uL (0-0.2); Basophils % (A) 1 %; Eosinophils # (A) 0.3 k/uL (0-0.7); Eosinophils % (A) 3 %; HCT 50.2 % (39.0-53.0); HGB 17.6 gm/dL (13.0-17.5); Lymphocytes # (A) 1.9 k/uL (1.0-4.8); Lymphocytes % (A) 18 %; MCH 33.7 pg (25.0-35.0); MCV 96.3 fL (80.0-100.0); Mean Platelet Volume 7.5; Monocytes # (A) 0.6 k/uL (0-1.0); Monocytes % (A) 6 %; Neutrophils # (A) 7.6 k/uL (1.3-7.7); Neutrophils % (A) 72 %; Platelet Count 304 k/uL (150-450); RBC 5.22 m/uL (4.30-5.90); RDW 13.4 % (11.5-15.5); WBC 10.5 k/uL (3.8-10.6)
[2019-01-20 18:47] LABS: Albumin 4.8 g/dL (3.80-4.90); Albumin/Globulin Ratio 2.18 (1.60-3.17); Bilirubin, Conjugated 0.2 mg/dL (0.20-0.40); Bilirubin,Unconjugated 0.4 mg/dL; Globulin 2.2 g/dL (1.6-3.3); Total Bilirubin 0.6 mg/dL (0.3-1.2)
== END | disposition home or self-care (01) ==
LOC: LABWHC1 13:19
PROVIDERS: ATTEND Physician Assistant
DX: B18.2 Chronic viral hepatitis C (principal)
CPT/HCPCS: 36415; 80076; 85025; 87522

== ENCOUNTER → 2019-06-02 | Outpatient (CLI) | payer OTHER ==
--- NOTE | 2019-06-02 10:38 | EST ---
EXERCISE STRESS AGE: 49 SEX: Male HT: 5'8" WT: 156 PROTOCOL: Castro STAGE: IV DURATION OF EXERCISE: 11 minutes HEART RATE REST: 77 BLOOD PRESSURE REST: 98/68 MAXIMUM HEART RATE ACHIEVED: 141 MAXIMUM BLOOD PRESSURE: 159/75 85% MPHR: 145 100% MPHR: 170 METS: 12.1 INDICATIONS: Chest pain. CLINICAL INFORMATION: Baseline rhythm is sinus mechanism, rate 77, normal axis and intervals, bigeminal ventricular ectopic activity. Baseline blood pressure 98/68 mmHg. Patient exercised on Castro protocol for 11 minutes reaching peak rate 141 beats per minute which is equal to 83% maximum predicted heart rate. Peak blood pressure 159/75 mmHg. Test was terminated secondary to fatigue. There was no chest pain. Electrocardiograph monitoring revealed frequent single PVCs at times in a bigeminal pattern. There was no evidence of diagnostic ischemic ST deviation. RESULTS: 1. Good exercise tolerance with no symptoms of chest pain. 2. Frequent ventricular ectopic activity with single PVCs at rest during exercise at times in a bigeminal pattern. 3. Nondiagnostic electrocardiograph stress testing secondary to the inability to achieve 85% maximum predicted heart rate, at the heart rate achieved there was no evidence of stress induced ischemia. MMODL / IJN: [id number] /
== END | disposition home or self-care (01) ==
LOC: RADNMMAIN 08:26
PROVIDERS: ATTEND Family Medicine
DX: I49.3 Ventricular premature depolarization (principal); R06.02 Shortness of breath; Z88.8 Allergy status to other drugs, medicaments and biological substances; Z88.5 Allergy status to narcotic agent
CPT/HCPCS: 93017

== ENCOUNTER → 2019-06-07 | Outpatient (CLI) | payer OTHER | END | disposition home or self-care (01) | LOC: RADECHMAIN 11:56 | PROVIDERS: ATTEND Family Medicine | DX: I44.0 Atrioventricular block, first degree (principal); I49.1 Atrial premature depolarization; R00.8 Other abnormalities of heart beat | CPT/HCPCS: 93225; 93226 ==

== ENCOUNTER 2019-06-11 22:07 | Emergency (ER) | payer OTHER ==
[2019-06-11 22:58] LABS: Basophils # (A) 0.1 k/uL (0-0.2); Basophils % (A) 1 %; Eosinophils # (A) 0.3 k/uL (0-0.7); Eosinophils % (A) 3 %; HCT 54.2 % (39.0-53.0); HGB 18.1 gm/dL (13.0-17.5); Lymphocytes # (A) 2.8 k/uL (1.0-4.8); Lymphocytes % (A) 29 %; MCHC 33.5 g/dL (31.0-37.0); MCV 98.6 fL (80.0-100.0); Mean Platelet Volume 9.3; Monocytes # (A) 0.6 k/uL (0-1.0); Monocytes % (A) 7 %; Neutrophils # (A) 5.6 k/uL (1.3-7.7); Neutrophils % (A) 58 %; Platelet Count 380 k/uL (150-450); RBC 5.49 m/uL (4.30-5.90); RDW 12.6 % (11.5-15.5); WBC 9.5 k/uL (3.8-10.6)
[2019-06-11 23:10] LABS: Partial Thromboplastin Time 26.3 sec (22.0-30.0); Prothrombin Time 10.7 sec (9.0-12.0)
[2019-06-11 23:11] LABS: ALT 27 U/L (4-49); AST 26 U/L (17-59); African American GFR (CKD) >90 (>60 ml/min/1.73 sqM); Alkaline Phosphatase 118 U/L (38-126); Anion Gap 11 mmol/L; Blood Urea Nitrogen 12 mg/dL (9-20); Carbon Dioxide 26 mmol/L (22-30); Chloride 100 mmol/L (98-107); Glucose 122 mg/dL (74-99); Magnesium 2.2 mg/dL (1.6-2.3); Non-African American GFR(CKD) >90 (>60 ml/min/1.73 sqM); Potassium 4.1 mmol/L (3.5-5.1); Sodium 137 mmol/L (137-145); Total Bilirubin 1.1 mg/dL (0.2-1.3); Total Protein 8.3 g/dL (6.3-8.2)
--- NOTE | 2019-06-11 23:17 | XR ---
EXAMINATION TYPE: XR chest 2V DATE OF EXAM: 06/11/2019 COMPARISON: 12/01/2018 HISTORY: Chest pain TECHNIQUE: 2 views FINDINGS: Heart and mediastinum are normal. Lungs are clear. Diaphragm is normal. There are chest laureano ds. Bony thorax is intact. There is some osteopenia. IMPRESSION: No active cardiopulmonary disease. No change.
--- NOTE | 2019-06-11 23:55 | ED ---
General Adult HPI - General Chief complaint: Chest Pain Stated complaint: Chest pain Time Seen by Provider: 06/11/19 22:18 Source: patient Mode of arrival: ambulatory Limitations: no limitations - History of Present Illness Initial comments: 49-year-old male patient past medical history significant for anxiety, PTSD presents to the emergency department today for evaluation of chest pain. Patient states with this he does experiencing some shortness of breath and tightness over the chest. States this current episode started a couple of days ago. States his been going on for the last few weeks. He did have a stress test and Holter monitor done last week. He states that they have noticed some skipped beats in his heart but haven't found anything else. Patient states other than his psychiatric history has no medical conditions. Does not take any medications for blood pressure. He denies any current nausea or vomiting. Denies fever or chills. Denies sore throat or cough. Denies any current suicidal or homicidal ideation. States that he is a former drug user but is currently clean. Patient denies any recent rash, fever, chills, abdominal pain, diarrhea, constipation, back pain, hematuria, dysuria, urinary urgency, urinary frequency, headache, visual changes, or any other complaints. - Related Data Previous Rx's Medication Instructions Recorded Albuterol Inhaler (Bulk) [Ventolin 1 - 2 puff INHALATION Q6HR PRN #1 12/01/18 Hfa Inhaler (Bulk)] inhaler Azithromycin [Zithromax Z-pack] 250 mg PO DIRECTED #6 tab 12/01/18 Benzonatate [Tessalon Perles] 200 mg PO Q8H PRN #15 capsule 12/01/18 predniSONE 50 mg PO DAILY #5 tablet 12/01/18 Allergies Allergy/AdvReac Type Severity Reaction Status Date / Time trifluoperazine Allergy Unknown Verified 06/11/19 22:12 [From Stelazine] Review of Systems ROS Statement: Those systems with pertinent positive or pertinent negative responses have been documented in the HPI. ROS Other: All systems not noted in ROS Statement are negative. Past Medical History Past Medical History: No Reported History Additional Past Medical History / Comment(s): previous iv drug user, hep C, herpes (R) eye, ETOH abuse History of Any Multi-Drug Resistant Organisms: MRSA Date of last positivie culture/infection: 2003 MDRO Source:: left arm Additional Past Surgical History / Comment(s): cyst removal from face Past Psychological History: Bipolar, Schizoaffective Disorder Smoking Status: Current every day smoker Past Alcohol Use History: Abuse Past Drug Use History: Marijuana General Exam Limitations: no limitations General appearance: alert, in no apparent distress, other (This is a well- developed, well-nourished adult male patient in no acute distress. Vital signs upon presentation are temperature 97.7F, pulse 55, respirations 20, blood pressure 164/81, pulse ox 100% on room air.) Eye exam: Present: normal appearance, PERRL, EOMI. Absent: scleral icterus, conjunctival injection, periorbital swelling ENT exam: Present: normal exam, normal oropharynx, mucous membranes moist Respiratory exam: Present: normal lung sounds bilaterally. Absent: respiratory distress, wheezes, rales, rhonchi, stridor Cardiovascular Exam: Present: regular rate, normal rhythm, normal heart sounds. Absent: systolic murmur, diastolic murmur, rubs, gallop, clicks GI/Abdominal exam: Present: soft, normal bowel sounds. Absent: distended, tenderness, guarding, rebound, rigid Neurological exam: Present: alert, oriented X3, CN II-XII intact Psychiatric exam: Present: normal affect, normal mood Skin exam: Present: warm, dry, intact, normal color. Absent: rash Course Vital Signs 06/11/19 06/12/19 22:07 00:18 Temperature 97.7 F 97.8 F Pulse Rate 55 L 66 Respiratory 20 18 Rate Blood Pressure 164/81 156/78 O2 Sat by Pulse 100 98 Oximetry EKG Findings - EKG Comments: EKG Findings:: EKG obtained at 2258 shows sinus rhythm with frequent PVCs. The ventricular rate is 88, LA interval 126, QRS duration 86, QT 366, QTc 442. No evidence of ST elevation or depression. Medical Decision Making - Medical Decision Making 49-year-old male patient presents to the emergency department today for evaluation of chest pain shortness of breath for the last few days. Physical examination is unremarkable. EKG showed sinus rhythm with frequent PVCs. Chest x-ray shows no acute cardio pulmonary process. Labs reviewed and are unremarkab le, troponin is negative. He did have negative stress test and is currently awaiting results of a Holter monitoring test. Patient does have a history significant for PTSD and high anxiety. He is currently taking his medications but we did discuss possibility that this may be causing his symptoms. He'll be discharged home with his primary care physician for further evaluation. He is instructed to follow up with cardiology for further evaluation. Return parameters were discussed in detail. He verbalizes understanding and agrees with this plan. - Lab Data Result diagrams: 06/11/19 22:35 06/11/19 22:35 Lab Results 06/11/19 06/11/19 06/11/19 Range/Units 22:35 22:35 22:35 WBC 9.5 (3.8-10.6) k/uL RBC 5.49 (4.30-5.90) m/uL Hgb 18.1 H (13.0-17.5) gm/dL Hct 54.2 H (39.0-53.0) % MCV 98.6 (80.0-100.0) fL MCH 33.0 (25.0-35.0) pg MCHC 33.5 (31.0-37.0) g/dL RDW 12.6 (11.5-15.5) % Plt Count 380 (150-450) k/uL Neutrophils % 58 % Lymphocytes % 29 % Monocytes % 7 % Eosinophils % 3 % Basophils % 1 % Neutrophils # 5.6 (1.3-7.7) k/uL Lymphocytes # 2.8 (1.0-4.8) k/uL Monocytes # 0.6 (0-1.0) k/uL Eosinophils # 0.3 (0-0.7) k/uL Basophils # 0.1 (0-0.2) k/uL PT 10.7 (9.0-12.0) sec INR 1.0 (<1.2) APTT 26.3 (22.0-30.0) sec Sodium 137 (137-145) mmol/L Potassium 4.1 (3.5-5.1) mmol/L Chloride 100 (98-107) mmol/L Carbon Dioxide 26 (22-30) mmol/L Anion Gap 11 mmol/L BUN 12 (9-20) mg/dL Creatinine 0.84 (0.66-1.25) mg/dL Est GFR (CKD-EPI)AfAm >90 (>60 ml/min/1.73 sqM) Est GFR (CKD-EPI)NonAf >90 (>60 ml/min/1.73 sqM) Glucose 122 H (74-99) mg/dL Calcium 10.0 (8.4-10.2) mg/dL Magnesium 2.2 (1.6-2.3) mg/dL Total Bilirubin 1.1 (0.2-1.3) mg/dL AST 26 (17-59) U/L ALT 27 (4-49) U/L Alkaline Phosphatase 118 (38-126) U/L Troponin I (0.000-0.034) ng/mL Total Protein 8.3 H (6.3-8.2) g/dL Albumin 5.0 (3.5-5.0) g/dL 06/11/19 Range/Units 22:35 WBC (3.8-10.6) k/uL RBC (4.30-5.90) m/uL Hgb (13.0-17.5) gm/dL Hct (39.0-53.0) % MCV (80.0-100.0) fL MCH (25.0-35.0) pg MCHC (31.0-37.0) g/dL RDW (11.5-15.5) % Plt Count (150-450) k/uL Neutrophils % % Lymphocytes % % Monocytes % % Eosinophils % % Basophils % % Neutrophils # (1.3-7.7) k/uL Lymphocytes # (1.0-4.8) k/uL Monocytes # (0-1.0) k/uL Eosinophils # (0-0.7) k/uL Basophils # (0-0.2) k/uL PT (9.0-12.0) sec INR (<1.2) APTT (22.0-30.0) sec Sodium (137-145) mmol/L Potassium (3.5-5.1) mmol/L Chloride (98-107) mmol/L Carbon Dioxide (22-30) mmol/L Anion Gap mmol/L BUN (9-20) mg/dL Creatinine (0.66-1.25) mg/dL Est GFR (CKD-EPI)AfAm (>60 ml/min/1.73 sqM) Est GFR (CKD-EPI)NonAf (>60 ml/min/1.73 sqM) Glucose (74-99) mg/dL Calcium (8.4-10.2) mg/dL Magnesium (1.6-2.3) mg/dL Total Bilirubin (0.2-1.3) mg/dL AST (17-59) U/L ALT (4-49) U/L Alkaline Phosphatase (38-126) U/L Troponin I <0.012 (0.000-0.034) ng/mL Total Protein (6.3-8.2) g/dL Albumin (3.5-5.0) g/dL - Radiology Data Radiology results: report reviewed, image reviewed Two-view x-ray of the chest is obtained. Report was reviewed in its entirety. Impression by Dr. Tavera shows no active cardiopulmonary disease. No change. Disposition Clinical Impression: Chest pain Disposition: HOME SELF-CARE Condition: Good Instructions (If sedation given, give patient instructions): Chest Pain (ED) Additional Instructions: Elevated primary care physician and chancellor for further evaluation as soon as possible. Return to the emergency department immediately for any new, worsening, or concerning symptoms. Is patient prescribed a controlled substance at d/c from ED?: No Referrals: Ramiro Ga MD [Primary Care Provider] - 1-2 days Time of Disposition: 23:55
[2019-06-12 00:19] VITALS: BP 156/78; PULSE 66; RESP 18; TEMP 97.8
== END 2019-06-12 00:18 | disposition home or self-care (01) ==
LOC: EC 22:07
DX: R07.89 Other chest pain (principal); R06.02 Shortness of breath; F17.200 Nicotine dependence, unspecified, uncomplicated; Z86.14 Personal history of Methicillin resistant Staphylococcus aureus infection; Z88.8 Allergy status to other drugs, medicaments and biological substances
CPT/HCPCS: 36415; 71046; 80053; 83735; 84484; 85025; 85610; 85730; 93005; 99285

== ENCOUNTER → 2019-07-20 | Outpatient (CLI) | payer OTHER ==
[2019-07-20 10:36] LABS: Prothrombin Time 10.5 sec (9.0-12.0)
[2019-07-20 10:44] LABS: Basophils # (A) 0.1 k/uL (0-0.2); Basophils % (A) 1 %; Eosinophils # (A) 0.3 k/uL (0-0.7); Eosinophils % (A) 3 %; HCT 51.2 % (39.0-53.0); HGB 16.3 gm/dL (13.0-17.5); Lymphocytes # (A) 2.1 k/uL (1.0-4.8); Lymphocytes % (A) 20 %; MCH 32.4 pg (25.0-35.0); MCHC 31.8 g/dL (31.0-37.0); Macrocytosis Slight; Mean Platelet Volume 9.4; Monocytes # (A) 0.8 k/uL (0-1.0); Monocytes % (A) 8 %; Neutrophils # (A) 7.1 k/uL (1.3-7.7); Neutrophils % (A) 67 %; Platelet Count 299 k/uL (150-450); RBC 5.02 m/uL (4.30-5.90); RDW 12.7 % (11.5-15.5); WBC 10.6 k/uL (3.8-10.6)
[2019-07-20 19:54] LABS: African American GFR (CKD) 101.3 (60.0-200.0); Albumin 4.5 g/dL (3.80-4.90); Albumin/Globulin Ratio 1.96 (1.60-3.17); Bilirubin, Conjugated 0.2 mg/dL (0.20-0.40); Bilirubin,Unconjugated 0.2 mg/dL; Globulin 2.3 g/dL (1.6-3.3); Non-African American GFR(CKD) 87.4 (60.0-200.0); Total Bilirubin 0.4 mg/dL (0.3-1.2); Total Protein 6.8 g/dL (6.2-8.2)
[2019-07-21 21:49] LABS: HCV Qualitative Result Not detected (Not detected); HCV Quant Log <1.08 (<1.08); HCV Quantitative Result <12 IU/mL (<12)
== END | disposition home or self-care (01) ==
LOC: LABWHC1 09:42
PROVIDERS: ATTEND Physician Assistant
DX: B18.2 Chronic viral hepatitis C (principal)
CPT/HCPCS: 36415; 80076; 82565; 84520; 85025; 85610; 87522

== ENCOUNTER 2019-08-22 22:49 | Emergency (ER) | payer OTHER ==
[2019-08-22] MEDS ORDERED: SODIUM CHLORIDE 0.9% 1,000 ML IV STA (23:25)
[2019-08-22] MEDS ORDERED: SODIUM CHLORIDE 0.9% 500 ML 500 ML IV STA (23:25)
[2019-08-22 23:37] LABS: Basophils # (A) 0.1 k/uL (0-0.2); Basophils % (A) 1 %; Eosinophils # (A) 0.2 k/uL (0-0.7); Eosinophils % (A) 2 %; HGB 16.6 gm/dL (13.0-17.5); Lymphocytes # (A) 2.4 k/uL (1.0-4.8); Lymphocytes % (A) 24 %; MCV 97.1 fL (80.0-100.0); Mean Platelet Volume 8.8; Monocytes # (A) 0.7 k/uL (0-1.0); Monocytes % (A) 7 %; Neutrophils # (A) 6.6 k/uL (1.3-7.7); Neutrophils % (A) 65 %; Platelet Count 358 k/uL (150-450); RBC 5.04 m/uL (4.30-5.90); RDW 12.5 % (11.5-15.5); WBC 10.2 k/uL (3.8-10.6)
--- NOTE | 2019-08-22 23:41 | ED ---
Chest Pain HPI - General Chief Complaint: Chest Pain Stated Complaint: Chest pain Time Seen by Provider: 08/22/19 23:19 Source: police, old records reviewed Mode of arrival: wheelchair Limitations: no limitations - History of Present Illness Initial Comments: This is a 49-year-old male DF for evaluation today. Patient is safe for evaluation regards to chest pain and anxiety some dizziness. No injury or travel history. No sick contacts. Patient is recent medication changes just admits increased stress in his life MD Complaint: chest pain Onset: during rest (The) Pain Location: substernal Severity: mild Severity scale (1-10): 2 Quality: tightness Consistency: now resolved Improves With: nothing Worsens With: nothing Anginal Symptoms: nausea, other (Anxiety) Other Symptoms: palpitations Treatments Prior to Arrival: none - Related Data Previous Rx's Medication Instructions Recorded Albuterol Inhaler (Mhu) [Ventolin 1 - 2 puff INHALATION Q6HR PRN #1 12/01/18 Hfa Inhaler (Mhu)] inhaler Azithromycin [Zithromax Z-pack] 250 mg PO DIRECTED #6 tab 12/01/18 Benzonatate [Tessalon Perles] 200 mg PO Q8H PRN #15 capsule 12/01/18 predniSONE 50 mg PO DAILY #5 tablet 12/01/18 Allergies Allergy/AdvReac Type Severity Reaction Status Date / Time trifluoperazine Allergy Unknown Verified 08/22/19 22:57 [From Stelazine] Review of Systems ROS Statement: Those systems with pertinent positive or pertinent negative responses have been documented in the HPI. ROS Other: All systems not noted in ROS Statement are negative. EKG Findings - EKG Comments: EKG Findings:: EKG is sinus rhythm of 99 OK 132 QRS 92 QTC 490 Past Medical History Past Medical History: No Reported History Additional Past Medical History / Comment(s): previous iv drug user, hep C, he rpes (R) eye, ETOH abuse History of Any Multi-Drug Resistant Organisms: MRSA Date of last positivie culture/infection: 2002 MDRO Source:: left arm Additional Past Surgical History / Comment(s): cyst removal from face Past Psychological History: Bipolar, Schizoaffective Disorder Smoking Status: Current every day smoker Past Alcohol Use History: Abuse Past Drug Use History: Marijuana General Exam Limitations: no limitations General appearance: alert, in no apparent distress Head exam: Present: atraumatic, normocephalic, normal inspection Eye exam: Present: normal appearance, PERRL, EOMI. Absent: scleral icterus, conjunctival injection, periorbital swelling ENT exam: Present: normal exam, mucous membranes moist Neck exam: Present: normal inspection. Absent: tenderness, meningismus, lymphadenopathy Respiratory exam: Present: normal lung sounds bilaterally. Absent: respiratory distress, wheezes, rales, rhonchi, stridor Cardiovascular Exam: Present: regular rate, normal rhythm, normal heart sounds. Absent: systolic murmur, diastolic murmur, rubs, gallop, clicks GI/Abdominal exam: Present: soft, normal bowel sounds. Absent: distended, tenderness, guarding, rebound, rigid Extremities exam: Present: normal inspection, full ROM, normal capillary refill. Absent: tenderness, pedal edema, joint swelling, calf tenderness Back exam: Present: normal inspection Neurological exam: Present: alert, oriented X3, CN II-XII intact Psychiatric exam: Present: normal affect, normal mood Skin exam: Present: warm, dry, intact, normal color. Absent: rash Course Vital Signs 08/22/19 08/23/19 08/23/19 22:54 00:40 02:06 Temperature 98.3 F 98.0 F Pulse Rate 99 84 82 Respiratory 16 18 18 Rate Blood Pressure 130/71 121/79 120/73 O2 Sat by Pulse 99 96 97 Oximetry - Reevaluation(s) Reevaluation #1: Medical records reviewed No recurrent complaints Chest Pain MDM - MDM This female DF for evaluation of chest pain and dizziness admits increased anxiety and stress. Patient said he is had with normal findings and results, EKG troponin chest x-ray negative for acute disease patient is feeling better, okay for discharge home Disposition Clinical Impression: Chest pain, PVC (premature ventricular contraction) Disposition: HOME SELF-CARE Condition: Good Instructions (If sedation given, give patient instructions): Chest Pain (ED) Is patient prescribed a controlled substance at d/c from ED?: No Referrals: Ramiro Ga MD [Primary Care Provider] - 1-2 days
[2019-08-22 23:47] LABS: ALT 22 U/L (4-49); AST 31 U/L (17-59); African American GFR (CKD) >90 (>60 ml/min/1.73 sqM); Albumin 4.6 g/dL (3.5-5.0); Alkaline Phosphatase 109 U/L (38-126); Anion Gap 15 mmol/L; Blood Urea Nitrogen 8 mg/dL (9-20); Calcium 9.7 mg/dL (8.4-10.2); Carbon Dioxide 20 mmol/L (22-30); Chloride 96 mmol/L (98-107); Glucose 99 mg/dL (74-99); Non-African American GFR(CKD) >90 (>60 ml/min/1.73 sqM); Potassium 3.3 mmol/L (3.5-5.1); Sodium 131 mmol/L (137-145); Total Bilirubin 1.2 mg/dL (0.2-1.3); Total Protein 7.6 g/dL (6.3-8.2)
[2019-08-22 23:56] LABS: D-Dimer 0.26 mg/L FEU (<0.60); Partial Thromboplastin Time 25.2 sec (22.0-30.0); Prothrombin Time 10.7 sec (9.0-12.0)
--- NOTE | 2019-08-23 00:43 | XR ---
EXAMINATION TYPE: XR chest 2V DATE OF EXAM: 08/23/2019 COMPARISON: 06/11/2019 HISTORY: Chest pain TECHNIQUE: 2 views FINDINGS: Heart is normal. Lungs are clear of consolidation. There are no hilar masses. There is slig ht coarsening of interstitial markings. There is no pleural effusion. Bony thorax is intact. IMPRESSION: Minimal fibrotic changes. No acute lung disease. Normal heart. No adverse change.
[2019-08-23 00:45] VITALS: RESP 18
[2019-08-23] MEDS ORDERED: POTASSIUM BICARBONATE/CIT AC 20 MEQ TABLET.EFF PO ONE (01:43)
[2019-08-23 02:07] VITALS: BP 120/73; PULSE 82; TEMP 98
== END 2019-08-23 02:07 | disposition home or self-care (01) ==
LOC: EC 22:49
DX: I49.3 Ventricular premature depolarization (principal); R07.2 Precordial pain; F17.200 Nicotine dependence, unspecified, uncomplicated; Z88.8 Allergy status to other drugs, medicaments and biological substances; Z86.14 Personal history of Methicillin resistant Staphylococcus aureus infection
CPT/HCPCS: 36415; 71046; 80053; 83690; 83735; 83880; 84484; 85025; 85379; 85610; 85730; 93005; 96360; 96361; 99285

== ENCOUNTER 2020-03-24 01:38 | Emergency (ER) | payer OTHER ==
[2020-03-24] MEDS ORDERED: SODIUM CHLORIDE 0.9% 500 ML 500 ML IV STA (01:59)
[2020-03-24] MEDS ORDERED: ASPIRIN 81 MG PO STA (01:59)
--- NOTE | 2020-03-24 02:06 | ED ---
General Adult HPI - General Chief complaint: Chest Pain Stated complaint: Chest Pain Time Seen by Provider: 03/24/20 01:46 Source: patient Mode of arrival: ambulatory Limitations: no limitations - History of Present Illness Initial comments: 50-year-old male patient presents to the emergency department today for evaluation of substernal chest pain. Patient states the pain has been intermittent over the last 2 days. States he does feel dizzy at times. Denies any chest pain, nausea, vomiting. Denies any shortness of breath. States that he has had symptoms similar to this in the past and has been evaluated by both his physician and in the hospital. States that he has had stress test which was unremarkable. States he determined it was related to his anxiety. Patient does have a history of heavy alcohol abuse, street drug use, and cigarette smoking. States he hasn't had alcohol or drugs in the last couple of years. States he does have family history of heart disease. Patient denies any recent rash, fever, chills, cough, abdominal pain, diarrhea, constipation, back pain, numbness, tingling, hematuria, dysuria, urinary urgency, urinary frequency, headache, visual changes, or any other complaints. - Related Data Previous Rx's Medication Instructions Recorded Albuterol Inhaler (Mhu) [Ventolin 1 - 2 puff INHALATION Q6HR PRN #1 12/01/18 Hfa Inhaler (Mhu)] inhaler Azithromycin [Zithromax Z-pack (6 250 mg PO DIRECTED #6 tab 12/01/18 tabs)] Benzonatate [Tessalon Perles] 200 mg PO Q8H PRN #15 capsule 12/01/18 predniSONE 50 mg PO DAILY #5 tablet 12/01/18 Allergies Allergy/AdvReac Type Severity Reaction Status Date / Time trifluoperazine Allergy Unknown Verified 03/24/20 01:44 [From Stelazine] Review of Systems ROS Statement: Those systems with pertinent positive or pertinent negative responses have been documented in the HPI. ROS Other: All systems not noted in ROS Statement are negative. Past Medical History Past Medical History: No Reported History Additional Past Medical History / Comment(s): previous iv drug user, hep C, herpes (R) eye, ETOH abuse History of Any Multi-Drug Resistant Organisms: MRSA Date of last positivie culture/infection: 2002 MDRO Source:: left arm Additional Past Surgical History / Comment(s): cyst removal from face Past Psychological History: Anxiety, Bipolar, PTSD, Schizoaffective Disorder Smoking Status: Current every day smoker Past Alcohol Use History: Abuse Past Drug Use History: Marijuana General Exam Limitations: no limitations General appearance: alert, in no apparent distress, other (this is a well- developed, well-nourished adult male patient in no acute distress.) Eye exam: Present: normal appearance, PERRL, EOMI. Absent: scleral icterus, conjunctival injection, periorbital swelling ENT exam: Present: normal exam, normal oropharynx, mucous membranes moist Respiratory exam: Present: normal lung sounds bilaterally. Absent: respiratory distress, wheezes, rales, rhonchi, stridor Cardiovascular Exam: Present: regular rate, normal rhythm, normal heart sounds. Absent: systolic murmur, diastolic murmur, rubs, gallop, clicks GI/Abdominal exam: Present: soft, normal bowel sounds. Absent: distended, tenderness, guarding, rebound, rigid Neurological exam: Present: alert, oriented X3, CN II-XII intact Psychiatric exam: Present: normal affect, normal mood Skin exam: Present: warm, dry, intact, normal color. Absent: rash Course Vital Signs 03/24/20 01:40 Temperature 98.5 F Pulse Rate 53 L Respiratory 22 Rate Blood Pressure 124/78 O2 Sat by Pulse 100 Oximetry EKG Findings - EKG Comments: EKG Findings:: EKG obtained at shows sinus rhythm with frequent PVCs. Bigeminy. Ventricular rate 77, when necessary interval 146, QRS duration 88, QT 402, QTc 454. No evidence of ST elevation or depression. Medical Decision Making - Medical Decision Making 50-year-old male patient presents to the emergency department today for evaluation of chest pain since going on for the last couple of days. Physical examination is unremarkable. Lung sounds are clear. Abdomen is soft and nonte nder. Labs reviewed and reveal a negative troponin. Chest x-ray is negative. EKG did show sinus rhythm with PVCs in a pattern of bigeminy. Review of records does reveal that he had similar EKG changes in May 2019, underwent stress testing and Holter monitor at that time. Patient will be discharged to follow- up with his primary care physician for recheck in 1-2 days. Return parameters were discussed in detail. He verbalizes understanding and agrees with this plan. Case discussed with my attending Dr. Topete. - Lab Data Result diagrams: 03/24/20 02:03 03/24/20 02:03 Lab Results 03/24/20 03/24/20 03/24/20 Range/Units 02:03 02:03 02:03 WBC 10.5 (3.8-10.6) k/uL RBC 5.08 (4.30-5.90) m/uL Hgb 17.0 (13.0-17.5) gm/dL Hct 48.5 (39.0-53.0) % MCV 95.4 (80.0-100.0) fL MCH 33.4 (25.0-35.0) pg MCHC 35.0 (31.0-37.0) g/dL RDW 13.0 (11.5-15.5) % Plt Count 296 (150-450) k/uL MPV 9.1 Neutrophils % 59 % Lymphocytes % 27 % Monocytes % 6 % Eosinophils % 5 % Basophils % 2 % Neutrophils # 6.2 (1.3-7.7) k/uL Lymphocytes # 2.9 (1.0-4.8) k/uL Monocytes # 0.6 (0-1.0) k/uL Eosinophils # 0.5 (0-0.7) k/uL Basophils # 0.2 (0-0.2) k/uL PT 10.4 (9.0-12.0) sec INR 1.0 (<1.2) APTT 25.8 (22.0-30.0) sec Sodium 139 (137-145) mmol/L Potassium 3.7 (3.5-5.1) mmol/L Chloride 106 (98-107) mmol/L Carbon Dioxide 23 (22-30) mmol/L Anion Gap 10 mmol/L BUN 12 (9-20) mg/dL Creatinine 0.73 (0.66-1.25) mg/dL Est GFR (CKD-EPI)AfAm >90 (>60 ml/min/1.73 sqM) Est GFR (CKD-EPI)NonAf >90 (>60 ml/min/1.73 sqM) Glucose 127 H (74-99) mg/dL Calcium 9.4 (8.4-10.2) mg/dL Magnesium 2.1 (1.6-2.3) mg/dL Total Bilirubin 0.5 (0.2-1.3) mg/dL AST 26 (17-59) U/L ALT 27 (4-49) U/L Alkaline Phosphatase 105 (38-126) U/L Troponin I (0.000-0.034) ng/mL Total Protein 7.3 (6.3-8.2) g/dL Albumin 4.4 (3.5-5.0) g/dL 03/24/20 Range/Units 02:03 WBC (3.8-10.6) k/uL RBC (4.30-5.90) m/uL Hgb (13.0-17.5) gm/dL Hct (39.0-53.0) % MCV (80.0-100.0) fL MCH (25.0-35.0) pg MCHC (31.0-37.0) g/dL RDW (11.5-15.5) % Plt Count (150-450) k/uL MPV Neutrophils % % Lymphocytes % % Monocytes % % Eosinophils % % Basophils % % Neutrophils # (1.3-7.7) k/uL Lymphocytes # (1.0-4.8) k/uL Monocytes # (0-1.0) k/uL Eosinophils # (0-0.7) k/uL Basophils # (0-0.2) k/uL PT (9.0-12.0) sec INR (<1.2) APTT (22.0-30.0) sec Sodium (137-145) mmol/L Potassium (3.5-5.1) mmol/L Chloride (98-107) mmol/L Carbon Dioxide (22-30) mmol/L Anion Gap mmol/L BUN (9-20) mg/dL Creatinine (0.66-1.25) mg/dL Est GFR (CKD-EPI)AfAm (>60 ml/min/1.73 sqM) Est GFR (CKD-EPI)NonAf (>60 ml/min/1.73 sqM) Glucose (74-99) mg/dL Calcium (8.4-10.2) mg/dL Magnesium (1.6-2.3) mg/dL Total Bilirubin (0.2-1.3) mg/dL AST (17-59) U/L ALT (4-49) U/L Alkaline Phosphatase (38-126) U/L Troponin I <0.012 (0.000-0.034) ng/mL Total Protein (6.3-8.2) g/dL Albumin (3.5-5.0) g/dL - Radiology Data Radiology results: report reviewed, image reviewed 2 view x-ray of the chest is obtained. Report was reviewed in its entirety. Impression by Dr. Norton shows no active disease. Atherosclerotic disease. Osteopenia. Disposition Clinical Impression: Chest pain Disposition: HOME SELF-CARE Condition: Good Instructions (If sedation given, give patient instructions): Chest Pain (ED) Additional Instructions: Follow-up with your primary care physician for recheck in 1-2 days. Return to the emergency department for any new, worsening, or concerning symptoms. Is patient prescribed a controlled substance at d/c from ED?: No Referrals: Ramiro Ga MD [Primary Care Provider] - 1-2 days Time of Disposition: 02:54
[2020-03-24 02:12] LABS: Basophils # (A) 0.2 k/uL (0-0.2); Basophils % (A) 2 %; Eosinophils # (A) 0.5 k/uL (0-0.7); Eosinophils % (A) 5 %; HCT 48.5 % (39.0-53.0); Lymphocytes # (A) 2.9 k/uL (1.0-4.8); Lymphocytes % (A) 27 %; MCH 33.4 pg (25.0-35.0); MCV 95.4 fL (80.0-100.0); Mean Platelet Volume 9.1; Monocytes # (A) 0.6 k/uL (0-1.0); Monocytes % (A) 6 %; Neutrophils # (A) 6.2 k/uL (1.3-7.7); Neutrophils % (A) 59 %; Platelet Count 296 k/uL (150-450); RBC 5.08 m/uL (4.30-5.90); WBC 10.5 k/uL (3.8-10.6)
[2020-03-24 02:21] LABS: Partial Thromboplastin Time 25.8 sec (22.0-30.0); Prothrombin Time 10.4 sec (9.0-12.0)
--- NOTE | 2020-03-24 02:24 | XR ---
EXAM: XR Chest, 2 Views CLINICAL HISTORY: Chest pain. TECHNIQUE: Frontal and lateral views of the chest. COMPARISON: 08/23/2019. FINDINGS: Lungs: The lungs are well aerated. Pleural space: Unremarkable. No pneumothorax. Heart: Cardiomediastinal silhouette unremarkable. Mediastinum: See above. Bones/joints: Osteopenia. Dextro scoliosis of the thoracic spine. Mild to moderate degenerative disc disease of the thoracic spine. Vasculature: Atherosclerotic disease of the aortic knob. IMPRESSION: 1. No active disease. 2. Atherosclerotic disease. 3. Osteopenia.
[2020-03-24 02:26] LABS: ALT 27 U/L (4-49); AST 26 U/L (17-59); African American GFR (CKD) >90 (>60 ml/min/1.73 sqM); Albumin 4.4 g/dL (3.5-5.0); Alkaline Phosphatase 105 U/L (38-126); Anion Gap 10 mmol/L; Blood Urea Nitrogen 12 mg/dL (9-20); Calcium 9.4 mg/dL (8.4-10.2); Carbon Dioxide 23 mmol/L (22-30); Chloride 106 mmol/L (98-107); Glucose 127 mg/dL (74-99); Magnesium 2.1 mg/dL (1.6-2.3); Non-African American GFR(CKD) >90 (>60 ml/min/1.73 sqM); Potassium 3.7 mmol/L (3.5-5.1); Sodium 139 mmol/L (137-145); Total Bilirubin 0.5 mg/dL (0.2-1.3); Total Protein 7.3 g/dL (6.3-8.2)
[2020-03-24 03:10] VITALS: BP 106/65; RESP 18; TEMP 98.3
[2020-03-24 03:13] VITALS: PULSE 84
== END 2020-03-24 03:12 | disposition home or self-care (01) ==
LOC: EC 01:38
DX: R07.2 Precordial pain (principal); R42 Dizziness and giddiness; F17.200 Nicotine dependence, unspecified, uncomplicated; Z88.8 Allergy status to other drugs, medicaments and biological substances; Z86.14 Personal history of Methicillin resistant Staphylococcus aureus infection; Z82.49 Family history of ischemic heart disease and other diseases of the circulatory system
CPT/HCPCS: 36415; 71046; 80053; 83735; 84484; 85025; 85610; 85730; 93005; 99285

== ENCOUNTER 2021-01-15 11:40 | Emergency (ER) | payer OTHER ==
[2021-01-15 12:26] VITALS: BP 141/87; PULSE 76; RESP 18; TEMP 98.2
[2021-01-15 13:03] LABS: ALT 31 U/L (4-49); AST 31 U/L (17-59); African American GFR (CKD) >90 (>60 ml/min/1.73 sqM); Albumin 4.2 g/dL (3.5-5.0); Alkaline Phosphatase 77 U/L (38-126); Anion Gap 7 mmol/L; Blood Urea Nitrogen 10 mg/dL (9-20); Calcium 9.6 mg/dL (8.4-10.2); Carbon Dioxide 25 mmol/L (22-30); Chloride 108 mmol/L (98-107); Glucose 102 mg/dL (74-99); INR 0.9 (<1.2); Non-African American GFR(CKD) >90 (>60 ml/min/1.73 sqM); Partial Thromboplastin Time 25.5 sec (22.0-30.0); Potassium 4.1 mmol/L (3.5-5.1); Sodium 140 mmol/L (137-145); Total Bilirubin 0.5 mg/dL (0.2-1.3); Total Protein 7.1 g/dL (6.3-8.2)
--- NOTE | 2021-01-15 13:32 | XR ---
EXAMINATION TYPE: XR chest 2V DATE OF EXAM: 01/15/2021 COMPARISON: 03/24/2020 HISTORY: 50-year-old male with chest pain TECHNIQUE: PA and lateral views FINDINGS: Heart normal size. Mild atherosclerotic arch calcifications. Mild interstitial prominence. Mild hyper inflation. No consolidation or pleural effusion. IMPRESSION: COPD. No acute process seen.
[2021-01-15 13:33] LABS: Basophils # (A) 0.1 k/uL (0-0.2); Basophils % (A) 1 %; Eosinophils # (A) 0.1 k/uL (0-0.7); Eosinophils % (A) 1 %; HCT 47.9 % (39.0-53.0); HGB 16.1 gm/dL (13.0-17.5); Lymphocytes # (A) 1.8 k/uL (1.0-4.8); Lymphocytes % (A) 14 %; MCHC 33.6 g/dL (31.0-37.0); Monocytes # (A) 0.6 k/uL (0-1.0); Monocytes % (A) 5 %; Neutrophils % (A) 78 %; Platelet Count 298 k/uL (150-450); RBC 4.88 m/uL (4.30-5.90); WBC 12.7 k/uL (3.8-10.6)
--- NOTE | 2021-01-15 14:38 | ED ---
Chest Pain HPI - General Chief Complaint: Chest Pain Stated Complaint: Abnormal EKG Time Seen by Provider: 01/15/21 12:43 Source: patient, RN notes reviewed Mode of arrival: ambulatory Limitations: no limitations - History of Present Illness Initial Comments: 50-year-old male with a history of smoking for a long time who had a cardiac workup done in February of this year which was apparently negative who was sent from his doctor's office today because of an apparent abnormal EKG. His usual physician did not see him they did have EKG today which showed some evidence of apparent ST changes per the patient. He denies any chest pain fevers chills nausea vomiting sweats shortness of breath out of proportion to his usual. No exertional dyspnea no other complaints or modifying factors no palpitations. MD Complaint: other - Related Data Previous Rx's Medication Instructions Recorded Albuterol Inhaler (Mhu) [Ventolin 1 - 2 puff INHALATION Q6HR PRN #1 12/01/18 Hfa Inhaler (Mhu)] inhaler Azithromycin [Zithromax Z-pack (6 250 mg PO DIRECTED #6 tab 12/01/18 tabs)] Benzonatate [Tessalon Perles] 200 mg PO Q8H PRN #15 capsule 12/01/18 predniSONE 50 mg PO DAILY #5 tablet 12/01/18 Allergies Allergy/AdvReac Type Severity Reaction Status Date / Time trifluoperazine Allergy Unknown Verified 01/15/21 12:26 [From Stelazine] Review of Systems ROS Statement: Those systems with pertinent positive or pertinent negative responses have been documented in the HPI. ROS Other: All systems not noted in ROS Statement are negative. Past Medical History Past Medical History: No Reported History Additional Past Medical History / Comment(s): previous iv drug user, hep C, herpes (R) eye, ETOH abuse History of Any Multi-Drug Resistant Organisms: MRSA Date of last positivie culture/infection: 2002 MDRO Source:: left arm Additional Past Surgical History / Comment(s): cyst removal from face Past Psychological History: Anxiety, Bipolar, PTSD, Schizoaffective Disorder Smoking Status: Current every day smoker Past Alcohol Use History: None Reported, Abuse Past Drug Use History: Marijuana General Exam - General Exam Comments Initial Comments: This is a well-developed well-nourished awake alert oriented 3 male Limitations: no limitations General appearance: alert, in no apparent distress Head exam: Present: atraumatic, normocephalic, normal inspection Eye exam: Present: normal appearance, PERRL, EOMI. Absent: scleral icterus, conjunctival injection, periorbital swelling ENT exam: Present: normal exam, mucous membranes moist Neck exam: Present: normal inspection, full ROM, other (No surgery or bruits). Absent: tenderness, meningismus, lymphadenopathy Respiratory exam: Present: normal lung sounds bilaterally. Absent: respiratory distress, wheezes, rales, rhonchi, stridor Cardiovascular Exam: Present: regular rate, normal rhythm, normal heart sounds. Absent: systolic murmur, diastolic murmur, rubs, gallop, clicks GI/Abdominal exam: Present: soft, normal bowel sounds. Absent: distended, t enderness, guarding, rebound, rigid Extremities exam: Present: normal inspection, full ROM, normal capillary refill. Absent: tenderness, pedal edema, joint swelling, calf tenderness Back exam: Present: normal inspection Neurological exam: Present: alert, oriented X3, CN II-XII intact Psychiatric exam: Present: normal affect, normal mood Skin exam: Present: warm, dry, intact, normal color. Absent: rash Course Vital Signs 01/15/21 12:22 Temperature 98.2 F Pulse Rate 76 Respiratory 18 Rate Blood Pressure 141/87 O2 Sat by Pulse 98 Oximetry Chest Pain MDM - MDM Imaging reviewed no acute findings. I did have a long discussion with the patient regarding the findings EKG was reviewed from today compared to a previous one dated 03/04/2020 except for the PVCs were noted on that EKG it appears similar to today's. Patient will be discharged he will follow-up outpatient with his doctor. Disposition Clinical Impression: EKG abnormalities, Feared condition not demonstrated Disposition: HOME SELF-CARE Condition: Good Instructions (If sedation given, give patient instructions): Chest Pain (ED) Is patient prescribed a controlled substance at d/c from ED?: No Referrals: Ramiro Ga MD [Primary Care Provider] - 1-2 days
== END 2021-01-15 15:14 | disposition home or self-care (01) ==
LOC: EC 11:40
DX: R94.31 Abnormal electrocardiogram [ECG] [EKG] (principal); F17.200 Nicotine dependence, unspecified, uncomplicated; Z71.1 Person with feared health complaint in whom no diagnosis is made; Z88.8 Allergy status to other drugs, medicaments and biological substances
CPT/HCPCS: 36415; 71046; 80053; 84484; 85025; 85610; 85730; 93005; 99285

== ENCOUNTER 2022-05-12 22:50 | Emergency (ER) | payer OTHER ==
[2022-05-12 22:58] VITALS: TEMP 97
[2022-05-12 23:12] LABS: Basophils # (A) 0.1 k/uL (0-0.2); Basophils % (A) 2 %; Eosinophils # (A) 0.3 k/uL (0-0.7); Eosinophils % (A) 4 %; HCT 46.9 % (39.0-53.0); HGB 16.3 gm/dL (13.0-17.5); Lymphocytes # (A) 2.5 k/uL (1.0-4.8); Lymphocytes % (A) 31 %; MCHC 34.8 g/dL (31.0-37.0); MCV 94.8 fL (80.0-100.0); Mean Platelet Volume 9.7; Monocytes # (A) 0.6 k/uL (0-1.0); Monocytes % (A) 8 %; Neutrophils # (A) 4.2 k/uL (1.3-7.7); Neutrophils % (A) 54 %; Platelet Count 313 k/uL (150-450); RBC 4.95 m/uL (4.30-5.90); RDW 13.7 % (11.5-15.5); WBC 7.9 k/uL (3.8-10.6)
[2022-05-12 23:21] LABS: INR 1.1 (<1.2); Partial Thromboplastin Time 23.6 sec (22.0-30.0)
[2022-05-12 23:30] LABS: ALT 30 U/L (4-49); AST 29 U/L (17-59); African American GFR (CKD) >90 (>60 ml/min/1.73 sqM); Albumin 4.4 g/dL (3.5-5.0); Alkaline Phosphatase 83 U/L (38-126); Anion Gap 9 mmol/L; Blood Urea Nitrogen 12 mg/dL (9-20); Calcium 9.4 mg/dL (8.4-10.2); Carbon Dioxide 28 mmol/L (22-30); Chloride 101 mmol/L (98-107); Glucose 102 mg/dL (74-99); Non-African American GFR(CKD) >90 (>60 ml/min/1.73 sqM); Potassium 3.4 mmol/L (3.5-5.1); Sodium 138 mmol/L (137-145); Total Bilirubin 0.6 mg/dL (0.2-1.3)
--- NOTE | 2022-05-12 23:42 | XR ---
EXAMINATION TYPE: XR chest 2V DATE OF EXAM: 05/12/2022 COMPARISON: 01/15/2021 HISTORY: Chest pain TECHNIQUE: 2 views FINDINGS: Heart is normal. Lungs are clear. Diaphragm is normal. Bony thorax is intact. There are jak st leads. Thoracic aorta is atheromatous. No pleural effusion. IMPRESSION: No active cardiopulmonary disease. No significant change.
--- NOTE | 2022-05-13 | ED ---
Chest Pain HPI - General Chief Complaint: Chest Pain Stated Complaint: Chest Pain Time Seen by Provider: 05/12/22 22:54 Source: patient, EMS, RN notes reviewed Mode of arrival: EMS Limitations: no limitations - History of Present Illness Initial Comments: 52-year-old male presents emergency Department chief complaint of chest pain. Patient states this started prior arrival. Patient this pain resolved though he was given nitro by EMS. Patient states he was slightly clammy at that time. Patient does have a history of hyperlipidemia states he's had chest pain the past in which he's been evaluated by cardiology in the past. Patient states he does have a history anxiety. Patient does admit to smoking. Patient denies any fever, chills, cough collect symptoms. - Related Data Previous Rx's Medication Instructions Recorded Albuterol Inhaler [Ventolin Hfa 1 - 2 puff INHALATION Q6HR PRN #1 12/01/18 Inhaler] inhaler Azithromycin [Zithromax Z-pack (6 250 mg PO DIRECTED #6 tab 12/01/18 tabs)] Benzonatate [Tessalon Perles] 200 mg PO Q8H PRN #15 capsule 12/01/18 predniSONE 50 mg PO DAILY #5 tablet 12/01/18 Allergies Allergy/AdvReac Type Severity Reaction Status Date / Time trifluoperazine Allergy Unknown Verified 01/15/21 12:26 [From Stelamaru] Review of Systems ROS Statement: Those systems with pertinent positive or pertinent negative responses have been documented in the HPI. ROS Other: All systems not noted in ROS Statement are negative. EKG Findings - EKG Comments: EKG Findings:: EKG performed at 23:11 sinus rhythm rate of 87 [place] 164 QRS 90 QT/QTC 369/414 - EKG Results: EKG: interpreted by STEVEN Past Medical History Past Medical History: No Reported History Additional Past Medical History / Comment(s): previous iv drug user, hep C, herpes (R) eye, ETOH abuse History of Any Multi-Drug Resistant Organisms: MRSA Date of last positivie culture/infection: 2002 MDRO Source:: left arm Additional Past Surgical History / Comment(s): cyst removal from face Past Psychological History: Anxiety, Bipolar, PTSD, Schizoaffective Disorder Smoking Status: Current every day smoker Past Alcohol Use History: None Reported Past Drug Use History: Marijuana General Exam Limitations: no limitations Course Vital Signs 05/12/22 05/12/22 05/12/22 22:54 23:00 23:15 Temperature 97 F L Pulse Rate 85 78 77 Respiratory 18 15 16 Rate Blood Pressure 110/79 110/79 98/69 O2 Sat by Pulse 98 Oximetry 05/12/22 05/12/22 23:30 23:45 Temperature Pulse Rate 73 Respiratory 14 Rate Blood Pressure 107/72 104/68 O2 Sat by Pulse Oximetry Chest Pain MDM - MDM Was pt. sent in by a medical professional or institution (, PA, FOOTWEAR PRODUCTION MACHINE OPERATOR, urgent care, hospital, or halfway...) When possible be specific @ -No Did you speak to anyone other than the patient for history (EMS, parent, family, police, friend...)? What history was obtained from this source @ -No Did you review nursing and triage notes (agree or disagree)? Why? @ -I reviewed and agree with nursing and triage notes Were old charts reviewed (outside hosp., previous admission, EMS record, old EKG, old radiological studies, urgent care reports/EKG's, halfway records)? Report findings @ -Mckenna prior laboratory studies, EKG Differential Diagnosis (chest pain, altered mental status, abdominal pain women, abdominal pain men, vaginal bleeding, weakness, fever, dyspnea, syncope, headache, dizziness, GI bleed, back pain, seizure, CVA, palpatations, mental health, musculoskeletal)? @ -Differential Chest Pain: Stable Angina, Unstable Angina, STEMI, NSTEMI Aortic Dissection, Pneumothorax, Musculoskeletal, Esophageal Spasm GERD, Cholecystitis, Pancreatitis, Zoster, this is not meant to be an all-inclusive list. e EKG interpreted by me (3pts min.). @ -As above X-rays interpreted by me (1pt min.). @ -Chest x-ray shows no acute process CT interpreted by me (1pt min.). @ -None done U/S interpreted by me (1pt. min.). @ -None done What testing was considered but not performed or refused? (CT, X-rays, U/S, labs)? Why? @ -None What meds were considered but not given or refused? Why? @ -None Did you discuss the management of the patient with other professionals (professionals i.e. , TON, FOOTWEAR PRODUCTION MACHINE OPERATOR, lab, RT, psych nurse, group social worker, website/blog editor, teacher, credit or loans officer, case filler)? Give summary @ -No Was smoking cessation discussed for >3mins.? @ -No Was critical care preformed (if so, how long)? @ -No Were there social determinants of health that impacted care today? How? (Otilia elessness, low income, unemployed, alcoholism, drug addiction, transportation, low edu. Level, literacy, decrease access to med. care, retirement, rehab)? @ -No Was there de-escalation of care discussed even if they declined (Discuss DNR or withdrawal of care, Hospice)? DNR status @ -No What co-morbidities impacted this encounter? (DM, HTN, Smoking, COPD, CAD, Cancer, CVA, ARF, Chemo, Hep., AIDS, mental health diagnosis, sleep apnea, morbid obesity)? @ -None Was patient admitted / discharged? Hospital course, mention meds given and route, prescriptions, significant lab abnormalities, going to OR and other pertinent info. @ -[Discharge patient recommended to be admitted to the hospital for cardiac rule out patient refuses stating that he has no symptoms. I did explain that does not rule out Cardiac disease at this time. Patient recommended be admitted for troponin, cardiology evaluation, echocardiogram. Patient refuses. Undiagnosed new problem with uncertain prognosis? @ -No Drug Therapy requiring intensive monitoring for toxicity (Heparin, Nitro, Insulin, Cardizem)? @ -No Were any procedures done? @ -No Diagnosis/symptom? @ -Chest pain Acute, or Chronic, or Acute on Chronic? @ -Acute Uncomplicated (without systemic symptoms) or Complicated (systemic symptoms)? @ -Uncomplicated Side effects of treatment? @ -No Exacerbation, Progression, or Severe Exacerbation? @ -No Poses a threat to life or bodily function? How? (Chest pain, [place], [place], pneumonia, PE, COPD, DKA, ARF, appy, cholecystitis, CVA, Diverticulitis, Homicidal, Murphy icidal, threat to staff... and all critical care pts) @ -[Yes patient's chest pain may be due to cardiac arrest. Disposition Clinical Impression: Chest pain Disposition: HOME SELF-CARE Condition: Stable Instructions (If sedation given, give patient instructions): Chest Pain (ED) Additional Instructions: Please return to the Emergency Department if symptoms worsen or any other concerns. Is patient prescribed a controlled substance at d/c from ED?: No Referrals: Ramiro Ga MD [Primary Care Provider] - 1-2 days Time of Disposition: 00:00
[2022-05-13 00:02] VITALS: BP 104/68; PULSE 73; RESP 14
== END 2022-05-13 00:15 | disposition home or self-care (01) ==
LOC: EC 22:50
DX: R07.89 Other chest pain (principal); F41.9 Anxiety disorder, unspecified; F31.9 Bipolar disorder, unspecified; F17.200 Nicotine dependence, unspecified, uncomplicated; F12.90 Cannabis use, unspecified, uncomplicated; Z88.8 Allergy status to other drugs, medicaments and biological substances
CPT/HCPCS: 36415; 71046; 80053; 83735; 84484; 85025; 85610; 85730; 93005; 99285

== ENCOUNTER 2023-04-30 11:12 | Day surgery (SDC) | payer OTHER ==
[2023-04-28 15:05] VITALS: BMI 23.6
[~2023-04-30 11:12] MED LIST: LIDOCAINE 1% (10MG/ML) FOR IV START INTRADERMA PRN
[2023-04-30] MEDS: LACTATED RINGERS 1,000 ML IV SCH (11:37)
[2023-04-30 11:47] VITALS: RESP 16; TEMP 98
[2023-04-30] MEDS ORDERED: PROPOFOL 10 MG/ML 20 ML VIAL IV ONE (12:08)
--- NOTE | 2023-04-30 12:28 | P.PCN ---
Date of Procedure: 04/30/23 Procedure(s) Performed: BRIEF HISTORY: Patient is a 53-year-old pleasant white male scheduled for an elective colonoscopy as a part of screening for colon cancer/positive cologuard. PROCEDURE PERFORMED: Colonoscopy with biopsy. PREOPERATIVE DIAGNOSIS: Screening for colon cancer/positive cologuard. IV sedation per Anesthesia. PROCEDURE: After informed consent was obtained, the patient, was brought into the endoscopy unit. IV sedation was administered by Anesthesia under continuous monitoring. Digital rectal examination was normal. Initially the Olympus CF-160 flexible video colonoscope was then inserted in the rectum, gradually advanced into the cecum without any difficulty. Careful examination was performed as the scope was gradually being withdrawn. Ileocecal valve and the appendiceal orifice were visualized and appeared normal. Prep was excellent. Mucosa of the cecum, normal. In the ascending colon there was a 3 mm polyp that was removed by cold biopsy. Scattered right-sided diverticulosis seen. Rest of the ascending colon, transverse colon, descending colon, sigmoid colon, and rectum appeared normal. Retroflexion was performed in the rectum and no lesions were seen. The patient tolerated the procedure well. IMPRESSION: 3 mm ascending colon polyp status post cold biopsy Scattered right-sided diverticulosis RECOMMENDATIONS: Findings of this examination were discussed with the patient as well as his family. He was advised to follow with the biopsy results and have a repeat colonoscopy in 10 years..
[2023-04-30 13:29] VITALS: BP 108/77; PULSE 67
== END 2023-04-30 13:26 | disposition home or self-care (01) ==
LOC: ORWHC2ENDO 11:12
PROVIDERS: ATTEND Internal Medicine Gastroenterology
DX: K57.30 Diverticulosis of large intestine without perforation or abscess without bleeding (principal); E78.5 Hyperlipidemia, unspecified; G43.909 Migraine, unspecified, not intractable, without status migrainosus; F41.9 Anxiety disorder, unspecified; F43.10 Post-traumatic stress disorder, unspecified; F20.9 Schizophrenia, unspecified; F17.210 Nicotine dependence, cigarettes, uncomplicated; F12.90 Cannabis use, unspecified, uncomplicated; Z88.8 Allergy status to other drugs, medicaments and biological substances; Z79.899 Other long term (current) drug therapy
CPT/HCPCS: 88305; 45380; J2704

== ENCOUNTER → 2024-02-10 | Outpatient (CLI) | payer OTHER ==
--- NOTE | 2024-02-10 10:58 | CTL ---
EXAMINATION TYPE: CT Low Dose Lung DATE OF EXAM ORDERED: 02/10/2024 COMPARISON: None CLINICAL INDICATION: Male, 53 years old with history of Z12.2 Encounter scrn malign neoplasm, F17.210 ; [facility], [facility]MO[facility], Lung cancer screening, History of Smoking/tobacco use. TECHNIQUE: Low dose computed tomography scan was performed through the chest at 1 mm thick sections a nd reconstructed images in multiple planes at 1 mm and [address] DLP: 101.[address] CTDI: 2.5 mGy Automated exposure control for dose reduction was used. CT DIAGNOSTIC QUALITY: Satisfactory FINDINGS: There is biapical pleural thickening areas of pulmonary and subpleural micronodule in likely postinfl ammatory. Additional subpleural pulmonary micronodules are seen bilaterally measuring 3 mm or less. There is a larger subpleural nodule measuring 7 mm image 212 series 4 right middle lobe. There is a 5 mm left lower lobe pulmonary nodule image 278 series 4. Mild emphysematous changes. Airway is patent. There are subsegmental areas of consolidation most typical of scarring or atelectasis. No consolidati ve pneumonia. No pulmonary edema. No pleural effusion or pneumothorax. Atherosclerotic change of the aorta. No aneurysm. Mild coronary artery calcification. Heart size norm al. Assessment for adenopathy limited by noncontrast technique. Grossly no pathologic adenopathy. Hea rt size normal. Small hiatal hernia. Degenerative changes of the spine. IMPRESSION: 1. Mild COPD with multiple bilateral pulmonary nodules the largest seen in the right middle lobe jay uring 7 mm. Recommend 6 month follow-up CT scan. CT LUNG RAD AND CT CHEST RECOMMENDATION: Lung-Rad 3 Probably Benign: 6 month follow-up LDCT. [facility], , 02/10/2024 10:56 AM
== END | disposition home or self-care (01) ==
LOC: RADCTMAIN 06:50
PROVIDERS: ATTEND Family Medicine
DX: Z12.2 Encounter for screening for malignant neoplasm of respiratory organs (principal); J44.9 Chronic obstructive pulmonary disease, unspecified; F17.210 Nicotine dependence, cigarettes, uncomplicated
CPT/HCPCS: 71271

== ENCOUNTER 2024-02-16 14:37 | Emergency (ER) | payer OTHER ==
--- NOTE | 2024-02-16 15:11 | ED ---
General Adult HPI - General Chief complaint: Syncope Stated complaint: near syncopal Time Seen by Provider: 02/16/24 15:09 Source: patient Mode of arrival: wheelchair Limitations: no limitations - History of Present Illness Initial comments: Patient presents to the ED (patient states that he walked to the hospital today) stating that he had a brief syncopal episode while sitting on the couch 4 days ago, and after "coming to", he states that he had a headache. Patient states that his headache has since resolved, but he continues to "feel off in the h ead". Patient states that he has felt dizzy at times, and he states that he had 2 near syncopal episodes while standing today. Patient denies LOC today though. Patient states that his dizziness is worse when he moves his head. Patient denies head trauma or injury. Patient denies fever or chills, recent illness, headache currently, focal numbness/weakness/neuro deficit, visual changes, speech difficulty, otalgia, neck/back/extremity pain, chest pain or pressure, dyspnea, palpitations, cough or cold symptoms, abdominal pain, nausea/vomiting/diarrhea, bloody or melanotic stool, dysuria or urinary symptoms, decreased urine output, leg or calf swelling or pain, or any other symptoms or complaints. Patient denies alcohol use. Patient admits to occasional marijuana use. Patient denies any other illicit drug use. Patient denies any recent change in his medications. - Related Data Home Medications Medication Instructions Recorded Confirmed Acyclovir [Zovirax] 400 mg PO BID 04/28/23 04/28/23 Atorvastatin [Lipitor] 80 mg PO DAILY 04/28/23 04/30/23 Butalb/Acetaminophen/Caffeine 1 - 2 cap PO Q4HR PRN 04/28/23 04/28/23 [Fioricet 50-300-40 mg Capsule] Ergocalciferol [Vitamin D2 (1250 1,250 mcg PO Q14D 04/28/23 04/28/23 Mcg = 92131 Iu)] HYDROcodone/APAP 5-325MG [[place] 1 tab PO Q6HR PRN 04/28/23 04/28/23 5-325] Ibuprofen [Motrin] 800 mg PO Q8H PRN 04/28/23 04/28/23 LORazepam [Ativan] 1 mg PO TID 04/28/23 04/28/23 SUMAtriptan succinate [Imitrex] 100 mg PO DIRECTED PRN 04/28/23 04/28/23 Trifluridine 1% Ophth Soln 1 drops RIGHT EYE Q2H PRN 04/28/23 04/28/23 [Viroptic 1% Ophth Soln] Previous Rx's Medication Instructions Recorded Meclizine [Antivert] 25 mg PO TID PRN #12 tab 02/16/24 Allergies Allergy/AdvReac Type Severity Reaction Status Date / Time trifluoperazine Allergy SEIZURE Verified 02/16/24 14:45 [From Stelazine] Review of Systems ROS Statement: Those systems with pertinent positive or pertinent negative responses have been documented in the HPI. ROS Other: All systems not noted in ROS Statement are negative. 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 , ETOH abuse, + COLOGARD TEST History of Any Multi-Drug Resistant Organisms: MRSA Date of last positivie culture/infection: 2002 MDRO Source:: left arm Additional Past Surgical History / Comment(s): cyst removal from face AND RT LEG Past Anesthesia/Blood Transfusion Reactions: No Reported Reaction Past Psychological History: Anxiety, Bipolar, PTSD, Schizoaffective Disorder Smoking Status: Former smoker, Vaper Past Alcohol Use History: None Reported Past Drug Use History: Marijuana - Past Family History Mother Family Medical History: Cancer General Exam Limitations: no limitations General appearance: alert, in no apparent distress Head exam: Present: atraumatic, normocephalic Eye exam: Present: normal appearance, PERRL, EOMI ENT exam: Present: mucous membranes moist, TM's normal bilaterally Neck exam: Present: other (Trachea is in midline). Absent: tenderness, meningismus Respiratory exam: Present: normal lung sounds bilaterally. Absent: respiratory distress, wheezes, rales, rhonchi, stridor Cardiovascular Exam: Present: regular rate, normal rhythm, normal heart sounds, other (Normal radial pulses bilaterally) GI/Abdominal exam: Present: soft. Absent: distended, tenderness, guarding Extremities exam: Absent: tenderness, pedal edema Neurological exam: Present: alert, oriented X3, CN II-XII intact. Absent: motor sensory deficit Skin exam: Present: warm, dry, normal color Course Vital Signs 02/16/24 02/16/24 14:45 17:04 Temperature 97.7 F Pulse Rate 85 61 Respiratory 18 19 Rate Blood Pressure 116/78 95/69 O2 Sat by Pulse 100 96 Oximetry - Reevaluation(s) Reevaluation #1: 02/16/24 18:38 Patient denies development of any new symptoms while in the ED. Patient continues to have a normal/nonfocal neurological exam. Patient is aware of his test results, and he feels comfortable being discharged home at this time. He was counseled about near syncope/dizziness/vertigo, and he was clearly explained return and follow-up instructions. He was instructed to follow-up closely with his primary care provider. He feels comfortable with this plan. EKG Findings - EKG Comments: EKG Findings:: ED physician interpretation (interpreted by me): Normal sinus rhythm, ventricular rate of 68 bpm, no ectopy, normal CT and QRS intervals, normal QT interval, normal axis, possible U wave, no ST or T wave abnormality Medical Decision Making - Medical Decision Making Was pt. sent in by a medical professional or institution (, PA, INDUSTRIAL AUTOMATION SPECIALIST, urgent care, hospital, or prison...) When possible be specific @ -No Did you speak to anyone other than the patient for history (EMS, parent, family, police, friend...)? What history was obtained from this source @ -No Did you review nursing and triage notes (agree or disagree)? Why? @ -I reviewed and agree with nursing and triage notes Were old charts reviewed (outside hosp., previous admission, EMS record, old EKG, old radiological studies, urgent care reports/EKG's, prison records)? Report findings @ -No old charts were reviewed Differential Diagnosis (chest pain, altered mental status, abdominal pain women, abdominal pain men, vaginal bleeding, weakness, fever, dyspnea, syncope, headache, dizziness, GI bleed, back pain, seizure, CVA, palpatations, mental health, musculoskeletal)? @ -Differential Dizziness: Benign paroxysmal positional Vertigo, Meniere's disease, otitis media, acoustic neuroma, vertebrobasilar insufficiency, cerebellar stroke, hypovolemia, arrhythmia, coronary artery syndrome, anemia, hypoglycemia, hyperglycemia, intracranial mass, this is not meant to be an all-inclusive list EKG interpreted by me (3pts min.). @ -As above X-rays interpreted by me (1pt min.). @ -Chest x-ray was reviewed myself and shows no acute cardiopulmonary disease. I agree with the radiologist's interpretation as above. CT interpreted by me (1pt min.). @ -Noncontrast head CT was reviewed myself and shows no acute intracranial abnormality. I agree with the radiologist's interpretation as above. U/S interpreted by me (1pt. min.). @ -None done What testing was considered but not performed or refused? (CT, X-rays, U/S, labs)? Why? @ -None What meds were considered but not given or refused? Why? @ -None Did you discuss the management of the patient with other professionals (professionals i.e. , PA, INDUSTRIAL AUTOMATION SPECIALIST, lab, RT, psych nurse, social media senior associate, telephone answerer, teacher, chief media officer, rehabilitation caseworker)? Give summary @ -No Was smoking cessation discussed for >3mins.? @ -No Was critical care preformed (if so, how long)? @ -No Were there social determinants of health that impacted care today? How? (Homelessness, low income, unemployed, alcoholism, drug addiction, transportation, low edu. Level, literacy, decrease access to med. care, fci, rehab)? @ -No Was there de-escalation of care discussed even if they declined (Discuss DNR or withdrawal of care, Hospice)? DNR status @ -No What co-morbidities impacted this encounter? (DM, HTN, Smoking, COPD, CAD, Cancer, CVA, ARF, Chemo, Hep., AIDS, mental health diagnosis, sleep apnea, morbid obesity)? @ -None Was patient admitted / discharged? Hospital course, mention meds given and route, prescriptions, significant lab abnormalities, going to OR and other pertinent info. @ -Patient reports having dizziness that is worse with movement of his head for the past few days. I suspect that his symptoms may be due to positional vertigo. Patient's CT head, chest x-ray, EKG and labs are all fairly unremarkable. I do not suspect an emergent medical condition at this time. Will discharge patient home at this time. Patient was instructed to follow-up closely with his primary care provider. Patient feels comfortable with this plan. A prescription for meclizine was sent to the patient's pharmacy. Undiagnosed new problem with uncertain prognosis? @ -No Drug Therapy requiring intensive monitoring for toxicity (Heparin, Nitro, Insulin, Cardizem)? @ -No Were any procedures done? @ -No Diagnosis/symptom? @ -Dizziness, near-syncope Acute, or Chronic, or Acute on Chronic? @ -Acute Uncomplicated (without systemic symptoms) or Complicated (systemic symptoms)? @ -Default Side effects of treatment? @ -No Exacerbation, Progression, or Severe Exacerbation? @ -No Poses a threat to life or bodily function? How? (Chest pain, [place], [place], pneumonia, PE, COPD, DKA, ARF, appy, cholecystitis, CVA, Diverticulitis, Homicidal, Suicidal, threat to staff... and all critical care pts) @ -No - Lab Data Result diagrams: 02/16/24 17:00 02/16/24 17:00 Lab Results 02/16/24 02/16/24 02/16/24 Range/Units 17:00 17:00 17:00 WBC 7.4 (3.8-10.6) k/uL RBC 4.48 (4.30-5.90) m/uL Hgb 14.2 (13.0-17.5) gm/dL Hct 42.8 (39.0-53.0) % MCV 95.7 (80.0-100.0) fL MCH 31.8 (25.0-35.0) pg MCHC 33.3 (31.0-37.0) g/dL RDW 12.9 (11.5-15.5) % Plt Count 362 (150-450) k/uL MPV 8.8 Neutrophils % 59 % Lymphocytes % 27 % Monocytes % 7 % Eosinophils % 4 % Basophils % 1 % Neutrophils # 4.4 (1.3-7.7) k/uL Lymphocytes # 2.0 (1.0-4.8) k/uL Monocytes # 0.5 (0-1.0) k/uL Eosinophils # 0.3 (0-0.7) k/uL Basophils # 0.1 (0-0.2) k/uL PT 11.1 (10.0-12.5) sec INR 1.0 (<1.2) APTT 25.4 (22.0-30.0) sec Sodium 139 (137-145) mmol/L Potassium 4.2 (3.5-5.1) mmol/L Chloride 106 (98-107) mmol/L Carbon Dioxide 23 (22-30) mmol/L Anion Gap 10 mmol/L BUN 10 (9-20) mg/dL Creatinine 0.77 (0.66-1.25) mg/dL Est GFR (CKD-EPI)AfAm >90 (>60 ml/min/1.73 sqM) Est GFR (CKD-EPI)NonAf >90 (>60 ml/min/1.73 sqM) Glucose 100 H (74-99) mg/dL Calcium 9.6 (8.4-10.2) mg/dL Magnesium 2.1 (1.6-2.3) mg/dL Total Bilirubin 0.2 (0.2-1.3) mg/dL AST 23 (17-59) U/L ALT 21 (4-49) U/L Alkaline Phosphatase 82 (38-126) U/L Troponin I (0.000-0.034) ng/mL Total Protein 6.2 L (6.3-8.2) g/dL Albumin 4.1 (3.5-5.0) g/dL Serum Alcohol <10 mg/dL 02/16/24 Range/Units 17:00 WBC (3.8-10.6) k/uL RBC (4.30-5.90) m/uL Hgb (13.0-17.5) gm/dL Hct (39.0-53.0) % MCV (80.0-100.0) fL MCH (25.0-35.0) pg MCHC (31.0-37.0) g/dL RDW (11.5-15.5) % Plt Count (150-450) k/uL MPV Neutrophils % % Lymphocytes % % Monocytes % % Eosinophils % % Basophils % % Neutrophils # (1.3-7.7) k/uL Lymphocytes # (1.0-4.8) k/uL Monocytes # (0-1.0) k/uL Eosinophils # (0-0.7) k/uL Basophils # (0-0.2) k/uL PT (10.0-12.5) sec INR (<1.2) APTT (22.0-30.0) sec Sodium (137-145) mmol/L Potassium (3.5-5.1) mmol/L Chloride (98-107) mmol/L Carbon Dioxide (22-30) mmol/L Anion Gap mmol/L BUN (9-20) mg/dL Creatinine (0.66-1.25) mg/dL Est GFR (CKD-EPI)AfAm (>60 ml/min/1.73 sqM) Est GFR (CKD-EPI)NonAf (>60 ml/min/1.73 sqM) Glucose (74-99) mg/dL Calcium (8.4-10.2) mg/dL Magnesium (1.6-2.3) mg/dL Total Bilirubin (0.2-1.3) mg/dL AST (17-59) U/L ALT (4-49) U/L Alkaline Phosphatase (38-126) U/L Troponin I <0.012 (0.000-0.034) ng/mL Total Protein (6.3-8.2) g/dL Albumin (3.5-5.0) g/dL Serum Alcohol mg/dL - Radiology Data Chest x-ray: No acute cardiopulmonary disease/process. Noncontrast head CT: No acute intracranial process. Disposition Clinical Impression: Near syncope, Dizziness Disposition: HOME SELF-CARE Condition: Stable Instructions (If sedation given, give patient instructions): Vertigo (ED), Near Syncope (ED), Dizziness (ED) Additional Instructions: Return to the ER immediately should you develop any significant pain, a fever, feeling faint or fainting, numbness or weakness, shortness of breath, persistent vomiting, or new or worsening symptoms. Follow-up closely with your primary care provider. Prescriptions: Meclizine [Antivert] 25 mg PO TID PRN #12 tab PRN Reason: Vertigo Is patient prescribed a controlled substance at d/c from ED?: No Referrals: Ramiro Ga MD [Primary Care Provider] - 1-2 days Time of Disposition: 18:39
[2024-02-16] MEDS: MECLIZINE 12.5 MG TAB PO STA (17:07)
[2024-02-16 17:21] LABS: Basophils # (A) 0.1 k/uL (0-0.2); Basophils % (A) 1 %; Eosinophils # (A) 0.3 k/uL (0-0.7); Eosinophils % (A) 4 %; HCT 42.8 % (39.0-53.0); HGB 14.2 gm/dL (13.0-17.5); Lymphocytes % (A) 27 %; MCH 31.8 pg (25.0-35.0); MCHC 33.3 g/dL (31.0-37.0); MCV 95.7 fL (80.0-100.0); Mean Platelet Volume 8.8; Monocytes # (A) 0.5 k/uL (0-1.0); Monocytes % (A) 7 %; Neutrophils # (A) 4.4 k/uL (1.3-7.7); Neutrophils % (A) 59 %; Platelet Count 362 k/uL (150-450); RBC 4.48 m/uL (4.30-5.90); RDW 12.9 % (11.5-15.5); WBC 7.4 k/uL (3.8-10.6)
[2024-02-16 17:29] LABS: ALT 21 U/L (4-49); AST 23 U/L (17-59); African American GFR (CKD) >90 (>60 ml/min/1.73 sqM); Albumin 4.1 g/dL (3.5-5.0); Alcohol <10 mg/dL; Alkaline Phosphatase 82 U/L (38-126); Anion Gap 10 mmol/L; Blood Urea Nitrogen 10 mg/dL (9-20); Calcium 9.6 mg/dL (8.4-10.2); Carbon Dioxide 23 mmol/L (22-30); Chloride 106 mmol/L (98-107); Glucose 100 mg/dL (74-99); Magnesium 2.1 mg/dL (1.6-2.3); Non-African American GFR(CKD) >90 (>60 ml/min/1.73 sqM); Potassium 4.2 mmol/L (3.5-5.1); Sodium 139 mmol/L (137-145); Total Bilirubin 0.2 mg/dL (0.2-1.3); Total Protein 6.2 g/dL (6.3-8.2)
[2024-02-16 17:30] LABS: Partial Thromboplastin Time 25.4 sec (22.0-30.0); Prothrombin Time 11.1 sec (10.0-12.5)
--- NOTE | 2024-02-16 18:02 | XR ---
EXAMINATION TYPE: XR chest 2V DATE OF EXAM: 02/16/2024 5:56 PM COMPARISON: Prior chest radius, most recently dated 05/12/2022. CLINICAL INDICATION: Male, 53 years old with history of syncope; [facility] TECHNIQUE: XR chest 2V Frontal and lateral views of the chest. FINDINGS: Lungs/Pleura: There is no evidence of pleural effusion, focal consolidation, or pneumothorax. Pulmonary vascularity: Unremarkable. Heart/mediastinum: Cardiomediastinal silhouette is unremarkable. Musculoskeletal: No acute osseous pathology. Other findings: None IMPRESSION: No acute cardiopulmonary disease/process. [facility], , 02/16/2024 6:00 PM
--- NOTE | 2024-02-16 18:23 | CT ---
EXAMINATION TYPE: CT brain wo con DATE OF EXAM: 02/16/2024 6:16 PM COMPARISON: None. CLINICAL INDICATION: Male, 53 years old with history of Headache, near syncope, NEAR SYNCOPE TECHNIQUE: Brain: Axial CT images of the brain were obtained with coronal and sagittal reformats created and rev iewed. Contrast used: None. Oral contrast used: None. CT DLP: 1096 mGycm, Automated exposure control for dose reduction was used. FINDINGS: Brain: Extra-axial spaces: No abnormal extra-axial fluid collections. Ventricular system: Within normal limits Cerebral parenchyma: No acute intraparenchymal hemorrhage or mass effect. The sebastian-white junction is well differentiated. Cerebellum: Unremarkable. Mass effect: No evidence of midline shift. Intracranial vasculature: unremarkable Soft tissues: Normal. Calvarium/osseous structures: No depressed skull fracture. Paranasal sinuses and mastoid air cells: Mild scattered paranasal sinus disease. Visualized orbits: Orbital contents are intact. IMPRESSION: No acute intracranial process. [facility], , 02/16/2024 6:21 PM
[2024-02-16 18:45] VITALS: BP 110/72; PULSE 69; RESP 17; TEMP 98.4
== END 2024-02-16 18:46 | disposition home or self-care (01) ==
LOC: EC 14:37
DX: R55 Syncope and collapse (principal); R42 Dizziness and giddiness; F17.290 Nicotine dependence, other tobacco product, uncomplicated; Z88.8 Allergy status to other drugs, medicaments and biological substances
CPT/HCPCS: 36415; 93005; 80053; 83735; 84484; 85025; 85610; 85730; 71046; 70450; 99285; G0480; 80320

== ENCOUNTER → 2024-05-08 | Outpatient (CLI) | payer OTHER ==
--- NOTE | 2024-05-08 10:05 | MR ---
EXAMINATION TYPE: MR iac wo/w con DATE OF EXAM: 05/08/2024 8:50 AM COMPARISON: None. CLINICAL INDICATION: Male, 54 years old with history of R90.89 ABN MRI G43.001 MIGRAINE WO AURA, Dizz iness, migraines, abnormal MRI. TECHNIQUE: Multiplanar and multispin-echo imaging of the brain was performed both before and after the administr ation of contrast. High-resolution images are obtained of the internal auditory canals performed uti lizing 7 mL intravenous Gadobutrol contrast. FINDINGS: The ventricles, basal cisterns and sulci overlying the cerebral convexities are within normal limits for patient's age group. There is no evidence for midline shift or mass effect. Acute intracranial hemorrhage or extra-axial collection is not evident. Few nonspecific white matter changes likely related to chronic small vessel ischemic disease. High-resolution imaging of the internal auditory canals fails demonstrate evidence for an enhancing a coustic schwannoma or cerebellopontine cistern angle mass. Following contrast administration, there is no evidence for pathologic enhancement or enhancing mass. Area of enhancement seen previously at the left CP angle was not reproducible and is felt to have r eflected artifact previously. The paranasal sinuses and mastoid air cells are well-aerated. IMPRESSION: 1. No evidence of acoustic schwannoma or cerebellopontine angle mass. 2. Mild age-related atrophic and chronic small vessel ischemic change. [facility], , 05/08/2024 10:03 AM
== END | disposition home or self-care (01) ==
LOC: RADMRIMAIN 07:46
PROVIDERS: ATTEND Psychiatry & Neurology Neurology
DX: G43.001 Migraine without aura, not intractable, with status migrainosus (principal); E87.8 Other disorders of electrolyte and fluid balance, not elsewhere classified; R90.89 Other abnormal findings on diagnostic imaging of central nervous system; G31.1 Senile degeneration of brain, not elsewhere classified; I67.82 Cerebral ischemia
CPT/HCPCS: 70553; A9585

== ENCOUNTER 2024-05-11 16:06 | Emergency (ER) | payer OTHER ==
[2024-05-11 16:20] VITALS: TEMP 97.3
--- NOTE | 2024-05-11 16:50 | ED ---
Chest Pain HPI - General Chief Complaint: Chest Pain Stated Complaint: chest pain Time Seen by Provider: 05/11/24 16:23 Source: patient, RN notes reviewed Mode of arrival: ambulatory Limitations: no limitations - History of Present Illness Initial Comments: This is a 54-year-old male who presents to the emergency department for dizziness and chest pain. Patient states that he has been dealing with intermittent bouts of chest pain for years that has been attributed to anxiety. States that he has had multiple cardiology evaluations. However, he has also had dizziness and near syncopal episodes and was referred to neurology. He noticed that when he recently started developing chest pain it would occur with dizziness, which concerned him, and his neurologist advised he come here for further evaluation. States that the chest pain is sharp and stabbing in nature but only lasts for a second when it occurs. There is no pattern associated with this. However, when it does occur is when he gets the dizziness. Denies any headaches or visual changes. Denies any shortness of breath. MD Complaint: chest pain - Related Data Home Medications Medication Instructions Recorded Confirmed Acyclovir [Zovirax] 400 mg PO BID 04/28/23 04/28/23 Atorvastatin [Lipitor] 80 mg PO DAILY 04/28/23 04/30/23 Butalb/Acetaminophen/Caffeine 1 - 2 cap PO Q4HR PRN 04/28/23 04/28/23 [Fioricet 50-300-40 mg Capsule] Ergocalciferol [Vitamin D2 (1250 1,250 mcg PO Q14D 04/28/23 04/28/23 Mcg = 23224 Iu)] HYDROcodone/APAP 5-325MG [[place] 1 tab PO Q6HR PRN 04/28/23 04/28/23 5-325] Ibuprofen [Motrin] 800 mg PO Q8H PRN 04/28/23 04/28/23 LORazepam [Ativan] 1 mg PO TID 04/28/23 04/28/23 SUMAtriptan succinate [Imitrex] 100 mg PO DIRECTED PRN 04/28/23 04/28/23 Trifluridine 1% Ophth Soln 1 drops RIGHT EYE Q2H PRN 04/28/23 04/28/23 [Viroptic 1% Ophth Soln] Previous Rx's Medication Instructions Recorded Meclizine [Antivert] 25 mg PO TID PRN #12 tab 02/16/24 Allergies Allergy/AdvReac Type Severity Reaction Status Date / Time trifluoperazine Allergy SEIZURE Verified 05/11/24 16:20 [From Stelazine] Review of Systems ROS Statement: Those systems with pertinent positive or pertinent negative responses have been documented in the HPI. ROS Other: All systems not noted in ROS Statement are negative. 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 , ETOH abuse, + COLOGARD TEST History of Any Multi-Drug Resistant Organisms: MRSA Date of last positivie culture/infection: 2002 MDRO Source:: left arm Additional Past Surgical History / Comment(s): cyst removal from face AND RT LEG Past Anesthesia/Blood Transfusion Reactions: No Reported Reaction Past Psychological History: Anxiety, Bipolar, PTSD, Schizoaffective Disorder Smoking Status: Vaper Past Alcohol Use History: None Reported Past Drug Use History: Marijuana - Past Family History Mother Family Medical History: Cancer General Exam Limitations: no limitations General appearance: alert, in no apparent distress Head exam: Present: atraumatic, normocephalic, normal inspection Eye exam: Present: normal appearance, PERRL, EOMI. Absent: scleral icterus, conjunctival injection, periorbital swelling Respiratory exam: Present: normal lung sounds bilaterally. Absent: respiratory distress, wheezes, rales, rhonchi, stridor Cardiovascular Exam: Present: regular rate, normal rhythm Neurological exam: Present: alert, oriented X3, CN II-XII intact Psychiatric exam: Present: normal affect, normal mood Skin exam: Present: warm, dry, intact, normal color. Absent: rash Course Vital Signs 05/11/24 05/11/24 05/11/24 16:13 17:29 19:06 Temperature 97.3 F L Pulse Rate 66 61 59 L Respiratory 19 16 16 Rate Blood Pressure 122/78 105/69 113/71 O2 Sat by Pulse 100 95 97 Oximetry Chest Pain MDM - MDM This is a 54 year old male who presents to the emergency department for chest pain. Was pt. sent in by a medical professional or institution? @ -No Did you speak to anyone other than the patient for history? @ -No Did you review nursing and triage notes? @ -Yes, and I agree, it is accurate with regards to the patient's symptoms. Were old charts reviewed? @ -No Differential Diagnosis? @ -Differential Chest Pain: Stable Angina, Unstable Angina, STEMI, NSTEMI Aortic Dissection, Pneumothorax, Musculoskeletal, Esophageal Spasm GERD, Cholecystitis, Pancreatitis, Zoster, this is not meant to be an all-inclusive list. EKG interpreted by me (3pts min.)? @ -EKG interpreted by me demonstrating the following: Sinus bradycardia. Ventricular rate 58 bpm, KS interval 170 ms, QRS duration 94 ms, QTc 385 ms. X-rays interpreted by me (1pt min.)? @ -Chest x-ray obtained, my interpretation identifies no localized con solidations or infiltrates. CT interpreted by me (1pt min.)? @ -Not obtained U/S interpreted by me (1pt. min.)? @ -Ultrasound of the carotid arteries obtained. My interpretation identifies no significant stenosis. What testing was considered but not performed? (CT, X-rays, U/S, labs)? Why? @ -None What meds were considered but not given? Why? @ -None Did you discuss the management of the patient with other professionals? @ -No Did you reconcile home meds? @ -No Was smoking cessation discussed for >3mins.? @ -No Was critical care preformed (if so, how long)? @ -No Were there social determinants of health that impacted care today? How? (Homelessness, low income, unemployed, alcoholism, drug addiction, transportation, low edu. Level, literacy, decrease access to med. care, halfway, rehab)? @ -No Was there de-escalation of care discussed even if they declined? (Discuss DNR or withdrawal of care, Hospice)? @ -No What co-morbidities impacted this encounter? (DM, HTN, Smoking, COPD, CAD, Cancer, CVA, Hep., AIDS, mental health diagnosis, sleep apnea, morbid obesity)? @ -None Was patient admitted / discharged? @ -Discharged. Lab work unremarkable. Troponin negative. Chest x-ray reveals no acute process. Duplex ultrasound of the carotid arteries obtained revealing no significant stenosis. Findings reviewed with the patient. I did offer admission for cardiac observation. However, patient states that this has been an ongoing issue for him and he he has already had multiple tests. They are planning on doing a Holter monitor at some point which he advised that he will just plan on following up with outpatient, however he declined admission overnight. Patient has a heart score of 2 based on his age and risk factor of high cholesterol. Advised he follow-up on his outpatient testing as well as with his primary care provider. Patient discharged home in stable condition. Case discussed with ED attending Dr. Arguello. Return precautions reviewed in depth, the patient is instructed to return to the emergency department with any new, worsening, or concerning symptoms. Patient verbalized understanding. Undiagnosed new problem with uncertain prognosis? @ -None Drug Therapy requiring intensive monitoring for toxicity (Heparin, Nitro, Insulin, Cardizem)? @ -None Were any procedures done? @ -None Diagnosis/symptom? @ -Chest pain, dizziness Acute, or Chronic, or Acute on Chronic? @ -Chronic Uncomplicated (without systemic symptoms) or Complicated (systemic symptoms)? @ -Uncomplicated Side effects of treatment? @ -None Exacerbation, Progression, or Severe Exacerbation] @ -Exacerbation Poses a threat to life or bodily function? @ -This will depend on the cause Disposition Clinical Impression: Chest pain, Dizziness Disposition: HOME SELF-CARE Instructions (If sedation given, give patient instructions): Chest Pain (ED), Lightheadedness (ED), Dizziness (ED) Additional Instructions: Return to the emergency department with any new, worsening, or concerning symptoms. Follow up with your primary care provider in 1-2 days. Is patient prescribed a controlled substance at d/c from ED?: No Referrals: Ramiro Ga MD [Primary Care Provider] - 1-2 days Time of Disposition: 18:23
--- NOTE | 2024-05-11 17:05 | XR ---
EXAMINATION TYPE: XR chest 2V DATE OF EXAM: 05/11/2024 4:59 PM COMPARISON: 02/16/2024 CLINICAL INDICATION: Male, 54 years old with history of Chest Pain: Shortness of breath TECHNIQUE: XR chest 2V views of the chest are obtained. FINDINGS: Scattered senescent parenchymal changes noted. Hyperinflation compatible with COPD. No evidence for infiltrate. No evidence for atelectasis. Heart size is stable. Mediastinal structures are stable and grossly unremarkable. No evidence for hilar prominence. Degenerative changes dorsal spine. IMPRESSION: 1. No evidence for acute pulmonary disease. [facility], , 05/11/2024 5:02 PM
[2024-05-11 17:09] LABS: ALT 35 U/L (4-49); AST 34 U/L (17-59); African American GFR (CKD) >90 (>60 ml/min/1.73 sqM); Albumin 4.3 g/dL (3.5-5.0); Alkaline Phosphatase 78 U/L (38-126); Anion Gap 11 mmol/L; Blood Urea Nitrogen 12 mg/dL (9-20); Calcium 9.2 mg/dL (8.4-10.2); Carbon Dioxide 22 mmol/L (22-30); Chloride 104 mmol/L (98-107); Glucose 115 mg/dL (74-99); Magnesium 2.1 mg/dL (1.6-2.3); Non-African American GFR(CKD) >90 (>60 ml/min/1.73 sqM); Sodium 137 mmol/L (137-145); Total Bilirubin 0.5 mg/dL (0.2-1.3); Total Protein 6.7 g/dL (6.3-8.2)
[2024-05-11 17:13] LABS: Basophils # (A) 0.1 k/uL (0-0.2); Basophils % (A) 1 %; Eosinophils # (A) 0.3 k/uL (0-0.7); Eosinophils % (A) 4 %; HCT 47.5 % (39.0-53.0); HGB 15.7 gm/dL (13.0-17.5); Lymphocytes # (A) 1.8 k/uL (1.0-4.8); Lymphocytes % (A) 29 %; MCH 31.8 pg (25.0-35.0); MCHC 33.2 g/dL (31.0-37.0); MCV 95.9 fL (80.0-100.0); Mean Platelet Volume 9.1; Monocytes # (A) 0.4 k/uL (0-1.0); Monocytes % (A) 7 %; Neutrophils # (A) 3.7 k/uL (1.3-7.7); Neutrophils % (A) 58 %; Platelet Count 334 k/uL (150-450); RBC 4.95 m/uL (4.30-5.90); RDW 13.5 % (11.5-15.5); WBC 6.4 k/uL (3.8-10.6)
[2024-05-11 17:15] LABS: Partial Thromboplastin Time 24.9 sec (22.0-30.0)
[2024-05-11 17:33] VITALS: RESP 16
--- NOTE | 2024-05-11 18:08 | US ---
EXAMINATION TYPE: US carotid duplex BILAT DATE OF EXAM: 05/11/2024 COMPARISON: NONE CLINICAL INDICATION: Male, 54 years old with history of Dizziness, syncope; patient states dizziness and syncope around dejah. today having chest pain and dizziness Additional History: .... TECHNIQUE: Grayscale, color Doppler and spectral Doppler evaluation of the bilateral carotid systems and vertebral arteries. Indirect Doppler criteria was utilized. FINDINGS: EXAM MEASUREMENTS: RIGHT: Peak Systolic Velocity (PSV) cm/sec ----- Right CCA: 107 ----- Right ICA: 86.4 ----- Right ECA: 98.9 ICA/CCA ratio: 0.9 RIGHT: End Diastole cm/sec ----- Right CCA: 22.7 ----- Right ICA: 29.3 ----- Right ECA: 14.7 LEFT: Peak Systolic Velocity (PSV) cm/sec ----- Left CCA: 93.8 ----- Left ICA: 81.2 ----- Left ECA: 124.0 ICA/CCA ratio: 0.9 LEFT: End Diastole cm/sec ----- Left CCA: 24.2 ----- Left ICA: 22.7 ----- Left ECA: 20.8 VERTEBRALS (direction of flow): Right Vertebral: Antegrade Left Vertebral: Antegrade Rhythm: Normal PHYSICAL THERAPIST CENTER MANAGER NOTES: No significant velocity elevations. Small amount of plaque bilateral bulbs Color Doppler imaging shows patency with blood flow throughout the carotid artery. Spectral waveforms are within normal limits. IMPRESSION: No evidence for hemodynamically significant stenosis. Criteria for Assigning % of Stenosis / Diameter reduction (Estimation based on the indirect measurements of the internal carotid artery velocities (ICA PSV). 1. Normal (no stenosis)=ICA PSV < 125 cm/s: ratio < 2.0: ICA EDV<40 cm/s. 2. Less than 50% stenosis=ICA PSV < 125 cm/s: ratio < 2.0: ICA EDV<40 cm/s. 3. 50 to 69% stenosis=ICA PSV of 125 to 230 cm/s: ration 2.0 ? 4.0: ICA EDV 40-100 cm/s. 4. Greater than 70% stenosis to near occlusion= ICA PSV > 230 cm/s: ratio > 4.0: ICA EDV > 100 cm/s. 5. Near occlusion= ICA PSV velocities may be low or undetectable: variable ratio and ICA EDV. 6. Total occlusion=unable to detect flow. [facility], , 05/11/2024 6:05 PM
[2024-05-11 19:07] VITALS: BP 113/71; PULSE 59
== END 2024-05-11 19:07 | disposition home or self-care (01) ==
LOC: EC 16:06
DX: R07.9 Chest pain, unspecified (principal); R42 Dizziness and giddiness; F17.290 Nicotine dependence, other tobacco product, uncomplicated; Z88.8 Allergy status to other drugs, medicaments and biological substances
CPT/HCPCS: 36415; 71046; 80053; 83735; 84443; 84484; 85025; 85610; 85730; 93005; 93880; 99285

== ENCOUNTER → 2024-05-22 | Outpatient (CLI) | payer OTHER ==
--- NOTE | 2024-06-03 03:41 | CE ---
CARDIAC ELECTROPHYSIOLOGY REPORT STUDY: 3-day Holter monitor. INDICATION: Cardiac arrhythmia. The patient was monitored for 24 hours. The baseline rhythm appeared to be sinus with an average heart rate of 62 beats per minute. Ventricular ectopic events noted in less than 1% of the total beats count and also supraventricular ectopic events noted in less than 1% of the total beats count. No significant sinus pause or sinus arrest. The patient did have 1 episode of atrial tachycardia of 7 beats only. CONCLUSION: 1. This is a 3-day Holter monitor. 2. The baseline rhythm appeared to be sinus mechanism. 3. Rare ventricular and supraventricular ectopic events. 4. The patient did have multiple episodes of atrial tachycardia with the longest of 9 beats. 5. No significant sinus pause or sinus arrest seen. MMODL / IJN: [id number] /
== END | disposition home or self-care (01) ==
LOC: RADECHMAIN 07:14
PROVIDERS: ATTEND Psychiatry & Neurology Neurology
DX: R55 Syncope and collapse (principal); I47.19 Other supraventricular tachycardia
CPT/HCPCS: 93225

== ENCOUNTER 2024-06-05 06:12 | Day surgery (SDC) | payer OTHER ==
[2024-06-01 11:59] VITALS: BMI 23.6
[~2024-06-05 06:12] MED LIST changes: -LIDOCAINE 1% (10MG/ML) FOR IV START INTRADERMA PRN; +SODIUM CHLORIDE 0.9% 1,000 ML IV SCH
[2024-06-05 06:37] VITALS: BP 123/78; PULSE 56; RESP 16; TEMP 97.8
[2024-06-05] MEDS: IV FLUID CONTINUATION 500 ML IV ONE (07:12)
--- NOTE | 2024-06-05 19:43 | P.EPPROC ---
- EP Procedure Note Electrophysiology Procedure Note: Diagnosis: Recurrent syncope Twelve-lead EKG shows sinus rhythm normal ID narrow QRS early repolarization abnormality within the notch in the terminal portion in the inferior leads Tilt table test per protocol Baseline blood pressure 112/69 mmHg, baseline heart rate 58 beats a minute No change in heart rate or blood pressure with upright position No symptoms Impression normal heart rate and blood pressure response to upright tilting Early repolarization abnormality on twelve-lead EKG in this 54-year-old male patient with sharp notching at the terminal end of the QRS in the inferior leads Extremely subtle signals at the terminal end of the QRS in lead V1
== END 2024-06-05 08:19 | disposition home or self-care (01) ==
LOC: CATHEP 06:12
PROVIDERS: ATTEND Internal Medicine Clinical Cardiac Electrophysiology
DX: R42 Dizziness and giddiness (principal)
CPT/HCPCS: 93660

== ENCOUNTER → 2024-06-13 | Outpatient (CLI) | payer OTHER ==
--- NOTE | 2024-06-13 12:19 | CA ---
Stress Echo Report Daniel Appiah Age: 54 Gender: M : 1970 Exam Date: 06/13/2024 11:02 Exam Location: [facility] Ht (in): 68 Wt (lb): 155 Ordering Physician: Ramiro Ga MD Referring Physician: Harmeet FIGUEROA Patient Intake Coordinator: Jumana Oneal RDCS Technologist Procedure CPT: Indication: R42 Lightheadedness R07.9 CHEST PAIN ICD-9 Codes: Rhythm: Patient History: Chest pain, palpitations and family history of heart disease Cardiac Medications: Medications in past 24 hours: Contrast: Stress Results Protocol: Castro Total dose(mL): Exercise Duration (min:sec): 12:[address] Depression (mm): 0 Angina Score: 0 Tracy Score: 12.2 METS: 12.3 Resting HR: 61 Resting BP: 122 / 85 Peak HR: 150 Peak BP: 200 / 98 Max Predicted HR: 165 91 % Max Predicted HR Target HR: 140 Double Product: [id number] Stress Summary: The patient's target heart rate was achieved BP Response: Reason for Termination: MAX EXERTION/TARGET HR Cardiac Symptoms: NO SYMPTOMS ECG Analysis Resting ECG: Normal sinus rhythm, normal ECG Stress ECG: No abnormal ST/T wave changes with exercise Arrhythmia: None Echo Analysis Resting Echo: Normal resting echocardiogram. Peak Echo Analysis: Normal wall thickening and motion with decrease in the cavity size MEASUREMENTS (Male/Female) Normal Values CONCLUSIONS Patient falls into low-risk group (DTS >= +5). This associates the patient with an annual CV mortality <= 0.5%. Excellent exercise tolerance with normal electrocardiographic response to exercise Normal stress echocardiogram with no evidence of stress induced ischemia Dr. Clem Esqueda MD (Electronically Signed) Final Date: 13 June 2024 12:18
== END | disposition home or self-care (01) ==
LOC: RADNMMAIN 05-30 10:28
PROVIDERS: ATTEND Family Medicine
DX: R00.2 Palpitations (principal); R42 Dizziness and giddiness; Z82.49 Family history of ischemic heart disease and other diseases of the circulatory system
CPT/HCPCS: 93351